=== PATIENT | female | born 1940 | race Caucasian/White ===

== ENCOUNTER 2018-07-01 19:45 | Inpatient (IN) ==
--- NOTE | 2018-07-01 20:16 | ED ---
HPI General Chief Complaint: Fall Stated Complaint: Trauma Transfer Time Seen by Provider: 07/01/18 19:46 Source: patient and EMS Mode of arrival: EMS Limitations: no limitations History of Present Illness HPI Narrative: 78-year-old female that presents to the ED for evaluation of trauma transfer. Patient was seen in a different facility today. Patient was seen at [facility] in [place]. She was evaluated there and sent here for evaluation of traumatic injuries she sustained during a fall. Patient was walking and she apparently had a mechanical fall on a curb and landed on her left side. Suffered laceration to the left face, frontal subdural hematoma and fracture to left wrist. Dr calabrese was contacted by ED and he agreed to transfer here. Patient has a significant history of GERD, anemia, Cirrhosis, atrial fib, diabetes. Currently only complain if headache. Pain is 7/10. No other complains. Denies any numbness, tingling, weakness. No leg pain. No abdominal or chest pain. No SOB. Denies taking any blood thinners. Denies any blurry vision or loss of vision. Patient came here with paperwork from the facility. Related Data Home Medications Medication Instructions Recorded Confirmed Ultram 50 mg PO 07/01/18 allopurinol 150 mg PO DAILY 07/01/18 07/01/18 cephalexin 500 mg PO 07/01/18 furosemide [Lasix] 40 mg PO DAILY 07/01/18 07/01/18 levothyroxine [Synthroid] 25 mcg PO DAILY 07/01/18 07/01/18 propranolol 20 mg PO BID 07/01/18 07/01/18 ranitidine HCl PRN 07/01/18 07/01/18 rifaximin [Xifaxan] 550 mg PO BID 07/01/18 07/01/18 spironolactone [Aldactone] 50 mg PO DAILY 07/01/18 07/01/18 Allergies Allergy/AdvReac Type Severity Reaction Status Date / Time carbamazepine [From Tegretol] Allergy Hallucinati Verified 07/01/18 20:08 ons codeine Allergy Rash Verified 07/01/18 20:08 lisinopril Allergy Hallucinati Verified 07/01/18 20:08 ons meloxicam [From Mobic] Allergy Atrial Verified 07/01/18 20:08 Fibrillation Review of Systems ROS: all other systems reviewed are negative PMFSH History History Provided By: Patient, 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 HEAD: Atraumatic. Normocephalic. Has brusing and noted lacerations with sutures on the left side of face. Bruising and hematoma mostly to the left side of face to the forehead and cheek. EYES: Pupils equal and round. No scleral icterus. No injection or drainage. EOM intact. ENT: No nasal bleeding or discharge. Mucous membranes pink and moist. Tongue is midline. No uvula deviation. NECK: Trachea midline. No JVD. CARDIOVASCULAR: Regular rate and rhythm. RESPIRATORY: No accessory muscle use. Clear to auscultation. Breath sounds equal bilaterally. GASTROINTESTINAL: Abdomen soft, non-tender, nondistended. Hepatic and splenic margins not palpable. MUSCULOSKELETAL: Extremities without clubbing, cyanosis, or edema. No obvious deformities. has a splint to the left wrist. Bruising to the lower extremities. 2+ pulses bilaterally. Sensation intact. No lumbar, thoracic, cervical spine tenderness to palpation. NEUROLOGICAL: Awake and alert. No obvious cranial nerve deficits. Motor grossly within normal limits. Five out of 5 muscle strength in the arms and legs. Normal speech. PSYCHIATRIC: Appropriate mood and affect; insight and judgment normal. Course Initial Documented Vital Signs Temperature 98.6 F 07/01/18 19:57 Pulse Rate 56 L 07/01/18 19:57 Respiratory Rate 18 07/01/18 19:57 Blood Pressure 189/88 H 07/01/18 19:57 Pulse Oximetry 99 07/01/18 19:57 Last Documented Vital Signs Temperature 98.6 F 07/01/18 19:57 Pulse Rate 56 L 07/01/18 19:57 Respiratory Rate 18 07/01/18 19:57 Blood Pressure 189/88 H 07/01/18 19:57 Pulse Oximetry 99 07/01/18 19:57 Medical Decision Making NOAM Attestation NOAM supervised visit: Yes Attestation: I, Dr. Pelletier, have reviewed the advance practice practitioner's documentation and am in agreement, met with the patient face to face, made the diagnosis, and the medical decision making was done by me. *My assessment and Findings: Patient is an 78-year-old female transferred from an outside facility for a subdural hematoma. She sustained a mechanical fall and fell onto her face. She is complaining of a slight headache but otherwise feels well. No blurry vision or pain with extraocular movements. GCS is 15 and she is neurologically intact. Extraocular movements are intact though she does have swelling around the left periorbital region. Of note at the outside facility her INR was 1.1 and platelets were 70. We spoke with Dr. Marcial, neurosurgeon on-call, whom asked for a repeat CT at this time. We also spoke with Dr. Torres, trauma surgeon on-call, whom agreed to admission. MDM Narrative Medical decision making narrative: 78 yo female here for evaluation of trauma transfer. Patient properly examined. I reviewed her medical records from the previous facility and patient had CT of face,head and cervical as well as xray of the left elbow and wrist as well as blood work. Blood work was significant for low platelet at 70, h/h of 10.6/30.9, INR of 1.1, PT 12.2, ptt 33.8, BUN 24 , creat, 1.12, ca 9.3, K 4.5, NA 136, cl 102, gap 15. CT of head and face and neck showed right frontal and right frontal parietal subdural hemorrhage with minimal mass effect and no midline shift. No cercvical spine fracture. Case was discussed with my attending Dr Pelletier who agrees with plan. Dr Calabrese agreed to admission to his service. Orders placed by me. Case discussed with Dr Marcial for Neurosurgery who agrees to consult on patient, wants CT head redone now. this was ordered. I could not find the xray report of the wrist so this was ordered by me as well as type and screen. Medical Screen Exam Complete: Yes Emergency Medical Condition: Yes Differential Diagnosis Differential Diagnosis: trauma vs subdural hematoma vs cirrhosis vs wrist fracture Medical Records Medical records reviewed: Yes I reviewed the patient's medical records. Imaging Data Radiologist's impression: Wrist X-Ray 07/01/18 20:03 CONCLUSION: Fracture at the distal lateral aspect of the radius best seen on the oblique view. Dorsal talus tilting of the lunate with widening of the proximal aspect of the scapholunate interval. Discharge Plan Discharge Disposition Patient Disposition: 30 Still Patient Discharge Condition Condition: Serious Discharge Details Diagnosis: Acute subdural hematoma, Fracture of wrist, Cirrhosis, Fall, Laceration of head , Thrombocytopenia Physicians Team ED Provider: Carmen Pelletier ED Midlevel Provider: Ludwin Santillan Primary Care Provider: UNKNOWN, Attending Provider: Princess Torres Status ED Status: Admitted Patient
--- NOTE | 2018-07-01 20:23 | XR ---
EXAM DATE: 07/01/2018 8:18 PM EDT AGE/SEX: 78 years / Female INDICATIONS: Pain. Fall. CLINICAL DATA: This is the patient's initial encounter. Patient reports that signs and symptoms have been present for 1 day and indicates a pain score of 8/10. MEDICAL/SURGICAL HISTORY: None. None. COMPARISON: No prior exams available for comparison. FINDINGS: The patient appears to be a partial cast. There is fracturing at the lateral aspect of the distal rad ius best seen on the oblique view. The radiocarpal joint appears normally aligned. There is dorsal ti lting of the lunate. There appears to be some widening of the proximal aspect of the scapholunate int erval. CONCLUSION: Fracture at the distal lateral aspect of the radius best seen on the oblique view. Dorsal talus tilting of the lunate with widening of the proximal aspect of the scapholunate interval. Electronically signed by: Monroe Swartz MD 07/01/2018 8:22 PM EDT
--- NOTE | 2018-07-01 21:01 | CT ---
EXAM DATE: 07/01/2018 8:53 PM EDT AGE/SEX: 78 years / Female INDICATIONS: Trauma; Transfer from [facility], evaluate subdural hemorrhage. CLINICAL DATA: This is the patient's initial encounter. Patient reports that signs and symptoms have been present for 1 day and indicates a pain score of 5/10. MEDICAL/SURGICAL HISTORY: . AFIB . Left knee replacement. RADIATION DOSE: 52.00 CTDI (mGy) COMPARISON: No prior exams available for comparison. TECHNIQUE: CT of the head without contrast. Using automated exposure control and adjustment of the mA and/or kV according to patient size, radiation dose was kept as low as reasonably achievable to ob tain optimal diagnostic quality images. DICOM format image data is available electronically for revi ew and comparison. FINDINGS: Cerebrum: There is a mild extra-axial hemorrhage seen at the right frontal region measuring up to 5 mm in thickness likely related to mild subdural hemorrhage. Significant midline shift is not seen. Th e ventricles are normal for age. No evidence of midline shift, mass lesion, or acute infarction. Posterior Fossa: The cerebellum and brainstem are intact. The 4th ventricle is midline. The cerebe llopontine angle is unremarkable. Extracranial: The visualized portion of the orbits is intact. Skull: There is left periorbital soft tissue swelling. CONCLUSION: 1. Mild 5 mm thick right subdural hematoma without midline shift. 2. Left periorbital soft tissue swelling. . Electronically signed by: Monroe Swartz MD 07/01/2018 9:00 PM EDT
--- NOTE | 2018-07-01 22:42 | P.CONNS ---
History of Present Illness Primary Care Provider: UNKNOWN Chief Complaint: Right parietal thin SDH History of Present Illness: 78yoF who fell. She is not on blood thinners but is cirrhotic with plt 70. Transferred from OSH where she was intact (no LOC). Left wrist fracture. There , head CT demonstrated right parietal SDH thin, which is redemonstrated on scan here 4 hours later. FORMERLY [facility], 1928–1983 - History History Provided By: Patient, Medical Record, Welding Supervisor / EMT - Medical History Medical History: Medical History (Last Reviewed 07/01/18 @ 20:20 by BALAJI Gamez) Atrial fibrillation FH: total knee replacement Platelet count less 100,000 per cubic millimeter - Tobacco History Second Hand Smoke Exposure: No Smoking Status: Never smoker - Alcohol History How Often Do You Have a Drink Containing Alcohol: Never - Travel History Recent Travel in the [place] Within the Last 8 Weeks: No Recent Travel Out of the Country Within the Last 8 Weeks: No - Immunization History Tetanus Immunization: <5 Years Tetanus Immunization Year if Known: 2018 Medications and Allergies Allergies Allergy/AdvReac Type Severity Reaction Status Date / Time carbamazepine [From Tegretol] Allergy Hallucinati Verified 07/01/18 20:08 ons codeine Allergy Rash Verified 07/01/18 20:08 lisinopril Allergy Hallucinati Verified 07/01/18 20:08 ons meloxicam [From Mobic] Allergy Atrial Verified 07/01/18 20:08 Fibrillation Home Medications Medication Instructions Recorded Confirmed Type Ultram 50 mg PO 07/01/18 History allopurinol 150 mg PO DAILY 07/01/18 07/01/18 History cephalexin 500 mg PO 07/01/18 History furosemide [Lasix] 40 mg PO DAILY 07/01/18 07/01/18 History levothyroxine [Synthroid] 25 mcg PO DAILY 07/01/18 07/01/18 History propranolol 20 mg PO BID 07/01/18 07/01/18 History ranitidine HCl PRN 07/01/18 07/01/18 History rifaximin [Xifaxan] 550 mg PO BID 07/01/18 07/01/18 History spironolactone [Aldactone] 50 mg PO DAILY 07/01/18 07/01/18 History Exam Vital signs: Vital Signs 07/01/18 19:57 07/01/18 21:25 Temperature 98.6 F Pulse Rate 56 L 80 Respiratory Rate 18 18 Blood Pressure 189/88 H 165/73 H Pulse Oximetry 99 Intake & Output 07/01/18 07/01/18 07/02/18 06:59 18:59 06:59 Weight 73.482 kg Narrative: A&O x 3 CN II-XII intact Motor 5/5 UE/LE Assessment and Plan - Plan hCT showing thin right parietal SDH, stable on repeat imaging. Plan: Admit overnight obs for neuro checks per trauma. Spine cleared.
[2018-07-01] MEDS ORDERED: Bisacodyl 10 MG Supp RECTAL PRN (23:17)
[2018-07-01] MEDS ORDERED: Post-op Orders (for Pharmacy) OTHER ONE (23:17)
[2018-07-01] MEDS ORDERED: Naloxone Inj 0.4 MG/ML Vial IV.PUSH PRN (23:17)
[2018-07-01] MEDS ORDERED: Morphine Inj 4 MG/ML Vial IV.PUSH PRN (23:17)
[2018-07-01] MEDS ORDERED: Sod Chloride 0.9% Inj 1,000 ML IV.CONT SCH (23:30)
--- NOTE | 2018-07-02 00:39 | XR ---
EXAM DATE: 07/02/2018 12:01 AM EDT AGE/SEX: 78 years / Female INDICATIONS: Right wrist pain post fall today CLINICAL DATA: This is the patient's initial encounter. Patient reports that signs and symptoms have been present for 1 day and indicates a pain score of 8/10. MEDICAL/SURGICAL HISTORY: None. None. COMPARISON: No prior exams available for comparison. FINDINGS: A tiny dorsal fragment is seen on the lateral view which is presumably a triquetral fracture fragment . The wrist appears otherwise intact. Overall bony alignment otherwise normal. Mild degenerative arth ritic change in the thumb carpal joint region. CONCLUSION: Likely small triquetral chip fracture. Electronically signed by: Monroe Cowart MD 07/02/2018 12:37 AM EDT
[2018-07-02] MEDS ORDERED: Dextrose 50% in Water 50 ML Vial IV.PUSH PRN (05:33)
[2018-07-02 06:30] LABS: Baso % (Auto) 0.6 % (0.0-2.0); Eos # (Auto) 0.1 th/mm3 (0.0-0.4); Eos % (Auto) 1.1 % (0.0-4.0); Hematocrit 29.8 % (35.0-46.0); Hemoglobin 10.2 gm/dL (11.6-15.3); Lymph # (Auto) 1.8 th/mm3 (1.0-4.8); Lymph % (Auto) 22.4 % (9.0-44.0); Mean Corpuscular HGB Conc 34.4 % (32.0-36.0); Mean Corpuscular Hemoglobin 33.5 pg (27.0-34.0); Mean Corpuscular Volume 97.3 fL (80.0-100.0); Mean Platelet Volume 9.3 fL (7.0-11.0); Mono # (Auto) 0.7 th/mm3 (0.0-0.9); Mono % (Auto) 9.1 % (0.0-8.0); Neut # (Auto) 5.3 th/mm3 (1.8-7.7); Neut % (Auto) 66.8 % (16.0-70.0); Platelet Count 67 th/mm3 (150-450); Red Blood Count 3.06 mil/mm3 (4.00-5.30); Red Cell Distribution Width 13.7 % (11.6-17.2)
[2018-07-02 06:53] LABS: Albumin 3.4 g/dL (3.4-5.0); Calcium 8.6 mg/dL (8.5-10.1); Carbon Dioxide 24.4 meq/L (21.0-32.0)
[2018-07-02 06:56] LABS: Total Protein 6.5 g/dL (6.4-8.2)
[2018-07-02] MEDS ORDERED: Famotidine 20 MG Tablet PO SCH (09:00)
[2018-07-02] MEDS: rifAXIMin 550 MG Tablet PO SCH ×2 (09:26→21:38)
[2018-07-02] MEDS: Senna/Docusate Sodium 8.6/50 MG Tablet PO SCH ×2 (09:27→21:37)
[2018-07-02] MEDS: Insulin NovoLIN Regular Correctional Sugar Inj SQ SCH ×4 (09:35→21:38)
[2018-07-02 09:59] LABS: Platelet Morphology Normal (Normal)
--- NOTE | 2018-07-02 10:06 | P.CONOP ---
[facility] Orthopedics Consult Note - [facility] Consult date: 07/02/18 Consult reason: fracture Chief complaint: Trauma Transfer, subdural hematoma, wrist fxs Narrative: A very pleasant 78-year-old female was a trauma transfer. Patient states that she tripped and fell over the curb in a parking lot and landed on the left side of her face and bilateral upper extremities. After subsequent evaluation and radiographs it appears that the patient sustained a left wrist fracture and right hand/carpal bone fracture. Patient was subsequently placed into a left short arm splint. Patient admits previous orthopedic surgeries include a left total knee arthroplasty several years ago. Patient admits she does have an orthopedic surgeon back home and is okay with receiving follow-up care with him. Patient previously ambulated unassisted and lives at home with her son and [id number]. No other musculoskeletal injuries identified. Review of Systems All other systems reviewed negative except as stated in [facility] - History History Provided By: Patient - Medical History Medical History: Medical History (Last Reviewed 07/01/18 @ 20:20 by BALAJI Gamez) Atrial fibrillation FH: total knee replacement Platelet count less 100,000 per cubic millimeter - Tobacco History Second Hand Smoke Exposure: No Smoking Status: Never smoker - Alcohol History How Often Do You Have a Drink Containing Alcohol: Never - Substance Use History Substance History: No History of Abuse - Travel History Recent Travel in the [place] Within the Last 8 Weeks: No Recent Travel Out of the Country Within the Last 8 Weeks: No - Immunization History Tetanus Immunization: <5 Years Tetanus Immunization Year if Known: 2018 Medications and Allergies Active Medications: Active Medications Al Hydroxide/Mg Hydroxide (Milk Of Danica Liq) 30 ml PO Q12H PRN PRN Reason: Mild Constipation Bisacodyl (Dulcolax Supp) 10 mg RECTAL DAILY PRN PRN Reason: SEVERE CONSITIPATION Dextrose (D50w Vial) 50 ml IV.PUSH UNSCH PRN PRN Reason: PER HYPOGLYCEMIA PROTOCOL Famotidine (Pepcid) 20 mg PO BID [facility] Last Admin: 07/02/18 09:26 Dose: 20 mg Glucagon (Glucagon Inj) 1 mg OTHER PRN PRN PRN Reason: for Hypoglycemia Protocol Sodium Chloride (Ns Inj) 1,000 mls @ 60 mls/hr IV.CONT .[id number] [facility] Last Admin: 07/02/18 01:11 Dose: 60 mls/hr Insulin Human Regular (Novolin R Correctional Sugar Inj) 0 units SQ ACHS [facility]; Protocol Last Admin: 07/02/18 09:35 Dose: Not Given Lactulose (Lactulose Liq) 30 ml PO DAILY PRN PRN Reason: SEVERE CONSITIPATION Levothyroxine Sodium (Synthroid) 25 mcg PO DAILY@0700 [facility] Last Admin: 07/02/18 09:30 Dose: 25 mcg Morphine Sulfate (Morphine Inj) 2 mg IV.PUSH Q3H PRN PRN Reason: PAIN 6-10;IF UNABLE TO TAKE PO Last Admin: 07/02/18 01:10 Dose: 2 mg Naloxone HCl (Narcan Inj) 0.4 mg IV.PUSH UNSCH PRN PRN Reason: SEE LABEL COMMENTS Ondansetron HCl (Zofran Inj) 4 mg IV.PUSH Q6H PRN PRN Reason: NAUSEA OR VOMITING Oxycodone/Acetaminophen (Percocet 5/325 Mg) 1 tab PO Q4H PRN PRN Reason: PAIN SCALE 3 TO 5 Propranolol HCl (Inderal) 20 mg PO BID [facility] Last Admin: 07/02/18 09:26 Dose: 20 mg Rifaximin (Xifaxan) 550 mg PO BID [facility] Last Admin: 07/02/18 09:26 Dose: 550 mg Senna/Docusate Sodium (Gypsy-Colace) 1 tab PO BID [facility] Last Admin: 07/02/18 09:27 Dose: 1 tab Sennosides (Senokot) 17.2 mg PO Q12H PRN PRN Reason: Moderate Constipation Allergies Allergy/AdvReac Type Severity Reaction Status Date / Time carbamazepine [From Tegretol] Allergy Hallucinati Verified 07/01/18 20:08 ons codeine Allergy Rash Verified 07/01/18 20:08 lisinopril Allergy Hallucinati Verified 07/01/18 20:08 ons meloxicam [From Mobic] Allergy Atrial Verified 07/01/18 20:08 Fibrillation Home Medications Medication Instructions Recorded Confirmed Type Ultram 50 mg PO 07/01/18 History allopurinol 150 mg PO DAILY 07/01/18 07/01/18 History cephalexin 500 mg PO 07/01/18 History furosemide [Lasix] 40 mg PO DAILY 07/01/18 07/01/18 History levothyroxine [Synthroid] 25 mcg PO DAILY 07/01/18 07/01/18 History propranolol 20 mg PO BID 07/01/18 07/01/18 History ranitidine HCl PRN 07/01/18 07/01/18 History rifaximin [Xifaxan] 550 mg PO BID 07/01/18 07/01/18 History spironolactone [Aldactone] 50 mg PO DAILY 07/01/18 07/01/18 History Exam Vital signs: Vital Signs 07/01/18 19:57 07/01/18 21:25 07/02/18 00:00 Temperature 98.6 F 98.5 F Pulse Rate 56 L 80 90 Respiratory Rate 18 Blood Pressure 189/88 H 165/73 H 131/69 Pulse Oximetry 99 07/02/18 04:00 Temperature 98.7 F Pulse Rate 80 Respiratory Rate 15 Blood Pressure 140/85 Pulse Oximetry Intake & Output 07/01/18 07/02/18 07/02/18 18:59 06:59 18:59 Intake Total 0 / 0 Output Total 850 / 850 Balance -850 / -850 Weight 73.4 kg Intake: Oral 0 / 0 Output: Urine 850 / 850 Other: Weight On Admission 73.4 kg Narrative: LUE: Short arm splint was removed for examination. Patient is able to move distal digits, full motion of elbow and shoulder, mild swelling present, good cap refill, neurovascularly intact RUE: Palpable tenderness over distal wrist and carpal bones, mild swelling present, slightly limited motion, full motion of elbow and shoulder, full motion of distal digits, good cap refill, neurovascularly intact Scattered skin abrasions noted throughout lower extremities, well-healed anterior scar on left knee No other muscular skeletal injuries identified Results - Labs Result Diagrams: 07/02/18 06:11 07/02/18 06:11 Labs: Laboratory Results - last 24 hr 07/01/18 07/02/18 07/02/18 20:06 00:30 06:11 WBC 8.0 RBC 3.06 L Hgb 10.2 L Hct 29.8 L MCV 97.3 MCH 33.5 MCHC 34.4 RDW 13.7 Plt Count 67 L MPV 9.3 Prelim Diff (Auto) Slide review pending Neut % (Auto) 66.8 Lymph % (Auto) 22.4 [place] % (Auto) 9.1 H Eos % (Auto) 1.1 Baso % (Auto) 0.6 Neut # (Auto) 5.3 Lymph # (Auto) 1.8 [place] # (Auto) 0.7 Eos # (Auto) 0.1 Baso # (Auto) 0.0 Differential Comment . Sodium Potassium Chloride Carbon Dioxide Anion Gap BUN Creatinine Estimated GFR POC Glucose Random Glucose Calcium Total Bilirubin Direct Bilirubin Indirect Bilirubin AST ALT Alkaline Phosphatase Total Protein Albumin Nasal Screen MRSA (PCR) Not detected Blood Type O Positive Antibody Screen Negative 07/02/18 07/02/18 06:11 09:35 WBC RBC Hgb Hct MCV MCH MCHC RDW Plt Count MPV Prelim Diff (Auto) Neut % (Auto) Lymph % (Auto) [place] % (Auto) Eos % (Auto) Baso % (Auto) Neut # (Auto) Lymph # (Auto) [place] # (Auto) Eos # (Auto) Baso # (Auto) Differential Comment Sodium 140 Potassium 4.0 Chloride 108 H Carbon Dioxide 24.4 Anion Gap 8 BUN 22 H Creatinine 1.18 H Estimated GFR 44 L POC Glucose 114 H Random Glucose 106 Calcium 8.6 Total Bilirubin 0.8 Direct Bilirubin 0.2 Indirect Bilirubin 0.6 AST 13 L ALT 17 Alkaline Phosphatase 76 Total Protein 6.5 Albumin 3.4 Nasal Screen MRSA (PCR) Blood Type Antibody Screen - Diagnostic results Imaging: Impressions Wrist X-Ray 07/01/18 00:00 CONCLUSION: Likely small triquetral chip fracture. Wrist X-Ray 07/01/18 20:03 CONCLUSION: Fracture at the distal lateral aspect of the radius best seen on the oblique view. Dorsal talus tilting of the lunate with widening of the proximal aspect of the scapholunate interval. Head CT 07/01/18 20:10 CONCLUSION: 1. Mild 5 mm thick right subdural hematoma without midline shift. 2. Left periorbital soft tissue swelling. . Assessment and Plan - Assessment and Plan The findings were discussed with the patient. Dr Bandar Blank has reviewed images and details of this case. Recommendations are given for non-operative management at this time. Patient is to remain in left upper extremity short arm splint. Velcro wrist brace for right wrist will be ordered for patient's comfort. Progress physical therapy for mobilization and pain control. Nonweightbearing bilateral upper extremities. Continue pain control. Recommended orthopedic follow up with her primary orthopedic surgeon in [place] [employer] in 7-10 days. Further displacement of the fracture site may require fixation. The possibility of future surgical treatment was discussed with the patient in detail, the patient acknowledges full understanding. Orthopedic clear for discharge at this time once medically stable and clear. Appreciate orthopedic involvement in patient's care.
--- NOTE | 2018-07-02 12:53 | P.PNCC ---
Subjective Brief History: HPI Narrative: 78-year-old female that presents to the ED for evaluation of trauma transfer. Patient was seen in a different facility today. Patient was seen at [facility] in [place]. She was evaluated there and sent here for evaluation of traumatic injuries she sustained during a fall. Patient was walking and she apparently had a mechanical fall on a curb and landed on her left side. Patient remembers the accident She is readily accepted for transfer to our institution Initial workup reveals Left facial contusions and laceration of the forehead which has been repaired Small left subdural hematoma with a frontal contusion Left radius/wrist fracture Right triquetrum fracture Liver cirrhosis based on nonsteroidal anti-inflammatory consumption Chronic thrombocytopenia Patient is admitted to ICU where she is awake alert and oriented and further care per clinical indices 24 Hour Review/Hospital Course: 07/02/2018 Patient is awake alert and oriented Neurologically fully intact Facial swelling decreased incision is clean and dry We will repeat CT scan of the head tomorrow Hemodynamically fully intact Bilateral breath sounds with good oxygen exchange and pulmonary mechanics Abdomen soft active bowel sounds Plan Patient will be started on diet will transfer to floor Physical therapy will evaluate the patient CT scan tomorrow and based on the resolution of the same patient will probably be able to be discharged Wednesday Objective Vital Signs / I&O: Vital Signs 07/01/18 19:57 07/01/18 21:25 07/02/18 00:00 Temperature 98.6 F 98.5 F Pulse Rate 56 L 80 90 Respiratory Rate 18 18 18 Blood Pressure 189/88 H 165/73 H 131/69 Pulse Oximetry 99 07/02/18 04:00 07/02/18 08:00 07/02/18 10:00 Temperature 98.7 F 98 F Pulse Rate 80 85 74 Respiratory Rate 15 16 Blood Pressure 140/85 141/60 H Pulse Oximetry 98 07/02/18 12:00 Temperature 98.1 F Pulse Rate 61 Respiratory Rate 16 Blood Pressure 135/65 Pulse Oximetry 98 Intake & Output 07/01/18 07/02/18 07/02/18 18:59 06:59 18:59 Intake Total 0 / 0 Output Total 850 / 850 Balance -850 / -850 Weight 73.4 kg Intake: Oral 0 / 0 Output: Urine 850 / 850 Other: Weight On Admission 73.4 kg Result Diagrams: 07/02/18 06:11 07/02/18 06:11 Imaging: Impressions Wrist X-Ray 07/01/18 00:00 CONCLUSION: Likely small triquetral chip fracture. Wrist X-Ray 07/01/18 20:03 CONCLUSION: Fracture at the distal lateral aspect of the radius best seen on the oblique view. Dorsal talus tilting of the lunate with widening of the proximal aspect of the scapholunate interval. Head CT 07/01/18 20:10 CONCLUSION: 1. Mild 5 mm thick right subdural hematoma without midline shift. 2. Left periorbital soft tissue swelling. . Disinhibition Score: 14.00 Aggression Score: 14.00 Lability Score: 14.00 Agitated Behavior Total Score: 14 Assessment and Plan Attestation: Critical care time 34 minutes
--- NOTE | 2018-07-02 13:30 | MH ---
cc: Princess Torres MD DATE OF ADMISSION: 07/01/2018 ADMITTING PHYSICIAN: Princess Torres MD ADMITTING DIAGNOSES: Traumatic brain injury, fall. HISTORY OF PRESENT ILLNESS: This 78-year-old lady apparently fell on when she tripped on the curb. She was seen at the [facility] and the request was made to transfer the patient. Apparently, the patient landed on her left side, suffered lacerations to the face and frontal very thin subdural hematoma, as well as a fracture of the left wrist that was diagnosed over there. PAST MEDICAL HISTORY: Cirrhosis, atrial fibrillation, diabetes mellitus, chronic thrombocytopenia. PAST SURGICAL HISTORY: Total knee replacement, cholecystectomy, and appendectomy. MEDICATIONS: The patient is on a number of medications that can be found in the record. PHYSICAL EXAMINATION: GENERAL: Reveals a pleasant, 78-year-old lady, awake, alert and oriented. HEENT: Normocephalic. Trauma to the head, consisting of swelling of the left side of the face, periorbital and left frontal and cheek swelling with a vertical laceration, left side of the forehead that has been repaired surgically. Pupils equal, reactive. Extraocular muscles intact. NECK: Bilateral carotid pulses. I do not appreciate any bruits. CHEST: Bilateral breath sounds, decreased over the lung cm. HEART: Regular rate and rhythm. ABDOMEN: Soft. Active bowel sounds. No rebound, no guarding, no masses. I palpated the liver by the edge, but other than that, there are no other abnormalities. EXTREMITIES: The patient has bilateral femoral, popliteal, dorsalis pedis and posterior tibial pulses, bilateral brachial, ulnar and radial pulses. NEUROLOGIC: The patient is awake and alert, oriented. No lateralization, no drift. Motor: Equal strength. Bilateral sensory preserved. MUSCULOSKELETAL: Reveals the patient to have swollen left wrist, which is consistent of a radius fracture and on the right side, the patient complained of the pain. Right hand x-ray reveals os triquetrum fracture. Orthopedics has been consulted. IMPRESSION: Patient with fall and a preexisting thrombocytopenia based on chronic liver fibrosis. The patient is transferred to our institution for further care and placed in the ICU. CRITICAL CARE TIME: 32 minutes. MD Gerri Bah , 12:49 PM , 12:57 PM
[2018-07-02] MEDS ORDERED: Sodium Chloride 0.9% 2 ML Flush PRN IV.FLUSH (16:20)
[2018-07-02] MEDS: Famotidine 20 MG Tablet PO SCH (21:37)
[2018-07-02] MEDS: Sodium Chloride 0.9% 2 ML Flush BID IV.FLUSH SCH (21:38)
--- NOTE | 2018-07-03 06:54 | P.DCO ---
- Physical Therapy Order: Evaluate and treat, Improve ambulation, Strength and gait training - Occupational Therapy Order: Evaluate and treat, Improve ADL - Home Health Nursing Order: Nursing assessment with vital signs - Case Management Consult Yes - Certification I have seen patient Jerome Benjamin on 07/03/18. My clinical findings support the need for the requested home health care services because: Limited mobility due to disease progression, High risk of falls I certify that my clinical findings support that this patient is homebound because: Unsteady gait/balance
[2018-07-03] MEDS: Insulin NovoLIN Regular Correctional Sugar Inj SQ SCH ×2 (07:58→11:49)
[2018-07-03] MEDS: Famotidine 20 MG Tablet PO SCH (08:05)
[2018-07-03] MEDS: rifAXIMin 550 MG Tablet PO SCH (08:05)
[2018-07-03] MEDS: Senna/Docusate Sodium 8.6/50 MG Tablet PO SCH (08:05)
[2018-07-03] MEDS: Sodium Chloride 0.9% 2 ML Flush BID IV.FLUSH SCH (08:06)
[2018-07-03] MEDS ORDERED: Spironolactone 50 MG Tablet PO SCH (09:00)
[2018-07-03 09:32] LABS: Baso % (Auto) 0.5 % (0.0-2.0); Eos # (Auto) 0.2 th/mm3 (0.0-0.4); Hematocrit 29.6 % (35.0-46.0); Hemoglobin 10.2 gm/dL (11.6-15.3); Lymph # (Auto) 2.1 th/mm3 (1.0-4.8); Lymph % (Auto) 21.3 % (9.0-44.0); Mean Corpuscular HGB Conc 34.4 % (32.0-36.0); Mean Corpuscular Hemoglobin 33.7 pg (27.0-34.0); Mean Corpuscular Volume 98.1 fL (80.0-100.0); Mean Platelet Volume 9.5 fL (7.0-11.0); Mono % (Auto) 10.5 % (0.0-8.0); Neut # (Auto) 6.5 th/mm3 (1.8-7.7); Neut % (Auto) 65.7 % (16.0-70.0); Platelet Count 75 th/mm3 (150-450); Red Blood Count 3.02 mil/mm3 (4.00-5.30); Red Cell Distribution Width 13.5 % (11.6-17.2); White Blood Count 9.9 th/mm3 (4.0-11.0)
[2018-07-03 10:05] LABS: Calcium 8.8 mg/dL (8.5-10.1); Carbon Dioxide 22.2 meq/L (21.0-32.0)
[2018-07-03 11:40] LABS: Ovalocytes 1+
--- NOTE | 2018-07-03 15:35 | P.DS ---
Date of admission: 07/01/18 20:02 Primary care physician: UNKNOWN Brief History from admission: S/P Fall DS: Medications - Discharge Medications Prescriptions: oxycodone-acetaminophen 1 tab PO Q4H PRN #14 tab PRN Reason: Acute Pain DS: Summary Hospital Course: VASQUEZ: Tripped and fell on a curb landing on her left side. ?LOC. Trauma transfer. INJURIES: LEFT facial lac (sutures) RIGHT frontoparietal SDH (5mm) LEFT radius fx (non-op) RIGHT hand fx (non-op) PMHx: GERD, anemia, Cirrhosis, atrial fib, DM, hypothyroidism, HTN, gout LEFT facial lac Supportive care Cleanse wound daily with soap and water. Leave open to air. Suture removal in 5 days RIGHT frontoparietal SDH Neurosurgery consulted, F/U outpatient Supportive care Repeat Head CT stable No Keppra needed Stable neuro checks Avoid second head injury Postconcussive education LEFT radius fx, RIGHT hand fx Orthopedics consulted, F/U outpatient Non-op Maintain splints NWB BUE Pain control F/U with PCP in 1 week Plan of care discussed with patient and RN at bedside. Collaborating Trauma MD agrees with plan. Case management consulted to assist with discharge planning. Patient is clear from Trauma surgery standpoint to safely discharge home. - Time Spent with Patient Total time spent providing and/or coordinating discharge services: Greater than 30 minutes - Quality: VTE Deep Vein Thrombosis/Pulmonary Embolism Present on Admission: Yes Exam Vital signs: Vital Signs 07/02/18 20:00 07/03/18 00:00 07/03/18 04:00 Temperature 98.5 F 98.4 F 98 F Pulse Rate 66 116 H 66 Respiratory Rate 18 18 18 Blood Pressure 125/55 L 133/60 132/60 Pulse Oximetry 99 93 L 99 07/03/18 08:00 07/03/18 12:00 Temperature 97.8 F 97.1 F L Pulse Rate 72 57 L Respiratory Rate 16 16 Blood Pressure 122/69 123/58 L Pulse Oximetry 96 100 Intake & Output 07/02/18 07/03/18 07/03/18 19:59 06:59 18:59 Intake Total 140 / 140 Balance 140 / 140 Intake: IV NS Inj 1,000 ML @ 60 mls/hr IV. CONT .[id number] LILO Rx#:[id number] Oral 140 / 140 Other: # Voids # Bowel Movements Narrative: GENERAL: 78 year old well-nourished female OOB in chair. SKIN: Warm and dry. LEFT facial edema and ecchymosis with sutures well approximated. HEAD:Normocephalic. ENT: No nasal bleeding or discharge. Mucous membranes pink and moist. NECK: Trachea midline. No JVD. CARDIOVASCULAR: Regular rate and rhythm. RESPIRATORY: No accessory muscle use. Clear to auscultation bilaterally. GASTROINTESTINAL: Abdomen soft, non-tender, nondistended. + BS MUSCULOSKELETAL: Extremities without cyanosis, or edema. LUE soft splint in place. MAEW, + perfused NEUROLOGICAL: Awake and alert. Normal speech. Results Procedures completed during hospitalization: . Labs on day of discharge: Labs from last 24 hours 07/03/18 07/03/18 07/03/18 11:35 08:46 08:46 WBC 9.9 RBC 3.02 L Hgb 10.2 L Hct 29.6 L MCV 98.1 MCH 33.7 MCHC 34.4 RDW 13.5 Plt Count 75 L MPV 9.5 Prelim Diff (Auto) Slide review pending Neut % (Auto) 65.7 Lymph % (Auto) 21.3 Mccracken % (Auto) 10.5 H Eos % (Auto) 2.0 Baso % (Auto) 0.5 Neut # (Auto) 6.5 Lymph # (Auto) 2.1 Mccracken # (Auto) 1.0 H Eos # (Auto) 0.2 Baso # (Auto) 0.0 WBC Differential . Diff Scan Auto diff confirmed Differential Comment . Platelet Estimate Low L Platelet Morphology Enlarged H Ovalocytes 1+ H Sodium 137 Potassium 4.0 Chloride 106 Carbon Dioxide 22.2 Anion Gap 9 BUN 21 H Creatinine 1.16 H Estimated GFR 45 L POC Glucose 107 Random Glucose 119 H Calcium 8.8 07/03/18 07/02/18 07/02/18 07:39 20:29 17:08 WBC RBC Hgb Hct MCV MCH MCHC RDW Plt Count MPV Prelim Diff (Auto) Neut % (Auto) Lymph % (Auto) Mccracken % (Auto) Eos % (Auto) Baso % (Auto) Neut # (Auto) Lymph # (Auto) Mccracken # (Auto) Eos # (Auto) Baso # (Auto) WBC Differential Diff Scan Differential Comment Platelet Estimate Platelet Morphology Ovalocytes Sodium Potassium Chloride Carbon Dioxide Anion Gap BUN Creatinine Estimated GFR POC Glucose 126 H 134 H 129 H Random Glucose Calcium - Impressions ITS Impressions Wrist X-Ray 07/01/18 20:03 CONCLUSION: Fracture at the distal lateral aspect of the radius best seen on the oblique view. Dorsal talus tilting of the lunate with widening of the proximal aspect of the scapholunate interval. Head CT 07/01/18 20:10 CONCLUSION: 1. Mild 5 mm thick right subdural hematoma without midline shift. 2. Left periorbital soft tissue swelling. . Discharge Plan - Discharge Disposition Patient Disposition: W/Home Health Service - Discharge Condition Condition: Stable - Discharge Order Discharge Orders: Discharge Order (Routine); Ordered 07/03/18 Ordered By: Pipo Beckham - Physicians Team Primary Care Provider: UNKNOWN, Attending Provider: Princess Torres Other Providers: Tono Alcantara MD ; Narinder Abraham MD ; Systems, [employer] ; Ramses Iniguez MD ; Marlin Mcgrath ARNP ; Link Todd MD ; Sherry Hylton MD ; Pipo Beckham ARNP ; Princess Torres MD ; Bandar Blank MD
[2018-07-04] MEDS ORDERED: Furosemide 40 MG Tablet PO SCH (09:00)
== END 2018-07-03 15:34 | disposition home health service (06) ==
LOC: NEPE 19:45 → NEDA 20:02 → N03 07-02 00:20 → N05 07-02 17:27
PROVIDERS: ADMIT Surgery; ATTEND Surgery

== ENCOUNTER 2018-07-24 14:23 | Inpatient (IN) ==
--- NOTE | 2018-07-24 14:33 | ED ---
HPI General Chief Complaint: Headache Stated Complaint: Medical / [facility] Time Seen by Provider: 07/24/18 14:26 Source: patient, EMS, RN notes reviewed and old records reviewed Mode of arrival: EMS Limitations: no limitations History of Present Illness HPI Narrative: 78-year-old female presents as a transfer accepted by our neurosurgeon dr redmond for a subdural. Patient states she had a fall on July 01 and has had a persistent headache ever since that got worse last night. She went to [facility] where she had a CT that showed a increase in subdural with shift and was sent here for further care. She denies taking any blood thinner medications and states she has history of low platelets. She denies any other concurrent complaints. Related Data Home Medications Medication Instructions Recorded Confirmed allopurinol 150 mg PO DAILY 07/01/18 07/01/18 furosemide [Lasix] 40 mg PO DAILY 07/01/18 07/01/18 levothyroxine [Synthroid] 25 mcg PO DAILY 07/01/18 07/01/18 propranolol 20 mg PO BID 07/01/18 07/01/18 ranitidine HCl PRN 07/01/18 07/01/18 rifaximin [Xifaxan] 550 mg PO BID 07/01/18 07/01/18 spironolactone [Aldactone] 50 mg PO DAILY 07/01/18 07/01/18 Previous Rx's Medication Instructions Recorded oxycodone-acetaminophen 1 tab PO Q4H PRN #14 tab 07/03/18 Allergies Allergy/AdvReac Type Severity Reaction Status Date / Time carbamazepine [From Tegretol] Allergy Hallucinati Verified 07/01/18 20:08 ons codeine Allergy Rash Verified 07/01/18 20:08 lisinopril Allergy Hallucinati Verified 07/01/18 20:08 ons meloxicam [From Mobic] Allergy Atrial Verified 07/01/18 20:08 Fibrillation Review of Systems ROS: all other systems reviewed are negative [facility] Medical History Medical History Atrial fibrillation (Acute) FH: total knee replacement (Acute) Platelet count less 100,000 per cubic millimeter (Acute) Social History Social History Substance History: No History of Abuse Second Hand Smoke Exposure: No Smoking Status: Never smoker How Often Do You Have a Drink Containing Alcohol: Never Recent Travel in [facility] within the Last 8 Weeks: No Recent Out of Country Travel within the Last 8 Weeks: No Immunization History Tetanus Immunization Year if Known: 2018 Exam Narrative Exam Narrative: GENERAL: 78 y/o female in no apparent distress SKIN: Focused skin assessment warm/dry. HEAD: Atraumatic. Normocephalic. EYES: Pupils equal and round. No scleral icterus. No injection or drainage. ENT: No nasal bleeding or discharge. Mucous membranes pink and moist. NECK: Trachea midline. No JVD. CARDIOVASCULAR: Regular rate and rhythm. No murmur appreciated. RESPIRATORY: No accessory muscle use. Clear to auscultation. Breath sounds equal bilaterally. GASTROINTESTINAL: Abdomen soft, non-tender, nondistended. MUSCULOSKELETAL: No obvious deformities. No clubbing. No cyanosis. NEUROLOGICAL: Awake, Motor grossly within normal limits. Normal speech. Course Consultations Consultation #1: dr redmond states to admit to icu team, npo after midnight for OR tommorrow and repeat ct head Consultation #2: dr castillo agrees to admti Initial Documented Vital Signs Temperature 98.8 F 07/24/18 14:24 Pulse Rate 87 07/24/18 14:24 Respiratory Rate 16 07/24/18 14:24 Last Documented Vital Signs Temperature 98.9 F 07/24/18 14:28 Pulse Rate 84 07/24/18 14:28 Respiratory Rate 16 07/24/18 14:24 Blood Pressure 178/76 H 07/24/18 14:28 Pulse Oximetry 98 07/24/18 14:28 Medical Decision Making [facility] Narrative Medical decision making narrative: Patient arrived from [place] with subdural with shift. Will discuss with neurosurgery and repeat blood work Medical Screen Exam Complete: Yes Emergency Medical Condition: Yes Differential Diagnosis Differential Diagnosis: Subdural, fracture, subarachnoid Lab Data Result diagrams: 07/24/18 14:32 07/24/18 14:32 Discharge Plan Discharge Disposition Patient Disposition: 30 Still Patient Discharge Details Diagnosis: Acute subdural hematoma, Thrombocytopenia Physicians Team ED Provider: Rosanne Zavaleta Primary Care Provider: Tima Mccracken Rxs /Orders / Referrals /Forms Prescriptions: No Action furosemide [Lasix] 40 mg Tablet 40 mg PO DAILY RF: 0 spironolactone [Aldactone] 50 mg Tablet 50 mg PO DAILY RF: 0 levothyroxine [Synthroid] 25 mcg Tablet 25 mcg PO DAILY RF: 0 allopurinol 300 mg Tablet 150 mg PO DAILY RF: 0 ranitidine HCl 150 mg Capsule PRN (Reason: Acid Reflux) RF: 0 propranolol 20 mg Tablet 20 mg PO BID RF: 0 rifaximin [Xifaxan] 550 mg Tablet 550 mg PO BID RF: 0 oxycodone-acetaminophen 5-325 mg Tablet 1 tab PO Q4H PRN (Reason: Acute Pain) Qty: 14 RF: 0 Status ED Status: Admitted Patient
[2018-07-24 15:07] LABS: Baso % (Auto) 0.4 % (0.0-2.0); Eos # (Auto) 0.1 th/mm3 (0.0-0.4); Eos % (Auto) 0.6 % (0.0-4.0); Hematocrit 30.4 % (35.0-46.0); Hemoglobin 10.5 gm/dL (11.6-15.3); Lymph # (Auto) 1.9 th/mm3 (1.0-4.8); Lymph % (Auto) 20.8 % (9.0-44.0); Mean Corpuscular HGB Conc 34.6 % (32.0-36.0); Mean Corpuscular Hemoglobin 33.9 pg (27.0-34.0); Mean Platelet Volume 9.5 fL (7.0-11.0); Mono # (Auto) 0.6 th/mm3 (0.0-0.9); Mono % (Auto) 6.6 % (0.0-8.0); Neut # (Auto) 6.6 th/mm3 (1.8-7.7); Neut % (Auto) 71.6 % (16.0-70.0); Platelet Count 80 th/mm3 (150-450); Red Blood Count 3.11 mil/mm3 (4.00-5.30); Red Cell Distribution Width 14.3 % (11.6-17.2); White Blood Count 9.2 th/mm3 (4.0-11.0)
[2018-07-24] MEDS ORDERED: Bisacodyl 10 MG Supp RECTAL PRN (15:11)
[2018-07-24 15:21] LABS: Activated Partial Thrombo Time 33.8 sec (23.4-31.7); INR 1.1 Ratio; Prothrombin Time 10.7 sec (9.8-11.6)
[2018-07-24 15:23] LABS: Alanine Aminotransferase 16 U/L (10-53); Albumin 3.7 g/dL (3.4-5.0); Anion Gap 6 meq/L (5-15); Aspartate Aminotransferase 18 U/L (15-37); Blood Urea Nitrogen 22 mg/dL (7-18); Calcium 8.5 mg/dL (8.5-10.1); Carbon Dioxide 29.2 meq/L (21.0-32.0); Chloride 100 meq/L (98-107); Glomerular Filtration Rate 42 mL/min (>89); Glucose,Random 101 mg/dL (74-106); Magnesium 1.9 mg/dL (1.5-2.5); Potassium 4.2 meq/L (3.5-5.1); Sodium 135 meq/L (136-145)
[2018-07-24 15:25] LABS: Alkaline Phosphatase 98 U/L (45-117); Total Protein 7.1 g/dL (6.4-8.2)
[2018-07-24] MEDS: Sod Chloride 0.9% Inj 1,000 ML IV.CONT SCH (15:26)
[2018-07-24 15:40] LABS: Platelet Morphology Normal (Normal)
--- NOTE | 2018-07-24 17:00 | P.HPCC ---
History of Present Illness Service: Critical care medicine Primary Care Physician: Tima Mccracken MD Chief Complaint: Headache History of Present Illness: This 78-year-old woman presented to the [facility] emergency department with a worsening right-sided headache this morning. CAT scan of the head revealed a moderate size right subdural hematoma, chronic, with midline shift. She is verbal and awake but mildly confused. Her history is significant for a fall on July 01 during which she fractured her left wrist, sprained her right wrist, and developed a small subdural. She developed cirrhosis of the liver from chronic nonsteroidal anti-inflammatory use and has not had major problems with bleeding. However she does run a chronically low platelet level which is 90,000 today. Her record indicates a past history of atrial fibrillation but she was in sinus mechanism on the last admission and remains so. - Diagnosis (1) Chronic intracranial subdural hematoma (2) Cirrhosis (3) Thrombocytopenia Inpatient Certification: I certify that the inpatient services were ordered in accordance with Medicare regulations governing the order. This includes certification that hospital inpatient services are reasonable and necessary and in the case of services not specified as inpatient-only under 42 CFR 419.22(n), that they are appropriately provided as inpatient services in accordance to with the 2-midnight benchmark under 43 CFR 412.3(e) Estimated Total Length of Stay (Days): 5 Plans for Post Hospital Care: Home Review of Systems Headache, no chest pain or shortness of breath. No vomiting no seizures. PMFSH - History History Provided By: Patient - Medical History Medical History: Medical History (Last Reviewed 07/24/18 @ 14:32 by Rosanne Zavaleta MD) Atrial fibrillation FH: total knee replacement Platelet count less 100,000 per cubic millimeter - Tobacco History Second Hand Smoke Exposure: No Smoking Status: Never smoker - Alcohol History How Often Do You Have a Drink Containing Alcohol: Never - Substance Use History Substance History: No History of Abuse - Travel History Recent Travel in the [place] Within the Last 8 Weeks: No Recent Travel Out of the Country Within the Last 8 Weeks: No - Immunization History Tetanus Immunization: <5 Years Tetanus Immunization Year if Known: 2017 Medications and Allergies Active Medications: Active Medications Acetaminophen (Tylenol) 650 mg PO Q6H PRN PRN Reason: PAIN 1-10 AND/OR FEVER >101F Al Hydroxide/Mg Hydroxide (Milk Of Magnesia Liq) 30 ml PO Q12H PRN PRN Reason: Mild Constipation Albuterol (Duoneb Neb (Prn)) 1 ampul NEB Q2HR NEB PRN PRN Reason: WHEEZING Bisacodyl (Dulcolax Supp) 10 mg RECTAL DAILY PRN PRN Reason: SEVERE CONSITIPATION Chlorhexidine Gluconate (Chlorhexidine 2% Cloth) 3 pack TOPICAL DAILY@0400 [facility] Stop: 07/30/18 03:59 Chlorhexidine Gluconate (Chlorhexidine 2% Cloth) 3 pack TOPICAL DAILY@0400 PRN PRN Reason: Extra cloth needed Stop: 07/30/18 03:59 Famotidine (Pepcid) 20 mg PO BID [facility] Sodium Chloride (Ns Inj) 1,000 mls @ 100 mls/hr IV.CONT .Q10H [facility] Last Admin: 07/24/18 15:26 Dose: 100 mls/hr Lactulose (Lactulose Liq) 30 ml PO DAILY PRN PRN Reason: SEVERE CONSITIPATION Ondansetron HCl (Zofran Inj) 4 mg IV.PUSH Q6H PRN PRN Reason: NAUSEA OR VOMITING Senna/Docusate Sodium (Gypsy-Colace) 1 tab PO BID [facility] Sennosides (Senokot) 17.2 mg PO Q12H PRN PRN Reason: Moderate Constipation Sodium Chloride (Ns Flush) 2 ml IV.FLUSH PRN PRN PRN Reason: FLUSH AFTER USING IV ACCESS Sodium Chloride (Ns Flush) 2 ml IV.FLUSH BID [facility] Sodium Chloride (Ns Flush) 2 ml IV.FLUSH PRN PRN PRN Reason: FLUSH AFTER USING IV ACCESS Allergies Allergy/AdvReac Type Severity Reaction Status Date / Time carbamazepine [From Tegretol] Allergy Hallucinati Verified 07/01/18 20:08 ons codeine Allergy Rash Verified 07/01/18 20:08 lisinopril Allergy Hallucinati Verified 07/01/18 20:08 ons meloxicam [From Mobic] Allergy Atrial Verified 07/01/18 20:08 Fibrillation Home Medications Medication Instructions Recorded Confirmed Type allopurinol 300 mg PO DAILY 07/01/18 07/24/18 History furosemide [Lasix] 40 mg PO EVERY OTHER DAY 07/01/18 07/24/18 History levothyroxine [Synthroid] 25 mcg PO DAILY 07/01/18 07/24/18 History propranolol 20 mg PO BID 07/01/18 07/24/18 History rifaximin [Xifaxan] 550 mg PO BID 07/01/18 07/24/18 History spironolactone [Aldactone] 50 mg PO EVERY OTHER DAY 07/01/18 07/24/18 History folic acid 0.4 mg PO DAILY 07/24/18 07/24/18 History polyethylene glycol 3350 [Miralax] 17 g PO DAILY PRN 07/24/18 07/24/18 History Results - Labs CBC & Chem 7: 07/24/18 14:32 07/24/18 14:32 Labs: Short CBC 07/24/18 Range/Units 14:32 WBC 9.2 (4.0-11.0) th/mm3 Hgb 10.5 L (11.6-15.3) gm/dL Hct 30.4 L (35.0-46.0) % Plt Count 80 L (150-450) th/mm3 BMP 07/24/18 14:32 Sodium 135 L Potassium 4.2 Chloride 100 Carbon Dioxide 29.2 BUN 22 H Creatinine 1.22 H Calcium 8.5 Liver Function 07/24/18 Range/Units 14:32 Total Bilirubin 0.8 (0.2-1.0) mg/dL AST 18 (15-37) U/L ALT 16 (10-53) U/L Alkaline Phosphatase 98 (45-117) U/L Albumin 3.7 (3.4-5.0) g/dL Exam Vital signs: Vital Signs 07/24/18 14:24 07/24/18 14:28 07/24/18 15:24 Temperature 98.8 F 98.9 F Pulse Rate 87 84 96 H Respiratory Rate 16 19 Blood Pressure 178/76 H 137/92 H Pulse Oximetry 98 07/24/18 15:45 Temperature Pulse Rate Respiratory Rate Blood Pressure Pulse Oximetry 98 Intake & Output 07/23/18 07/24/18 07/24/18 18:59 06:59 18:59 Weight 73.482 kg Narrative: General: Alert, conversant, oriented to place and name. Head: Normal Neck: Supple, airway widely patent Lungs: Clear bilaterally without wheezes or crackles. Comfortable respiratory pattern Heart: Regular rate and rhythm, normal S1-S2, no JVD. Abdomen: Soft, nondistended, no guarding, bowel sounds active. Extremities: Both wrists in splints. Distal circulation intact both hands. Warm and well-perfused. Neuro: Pupils equal and reactive to light. Moves 4 limbs to command. Unable to test strength. Speech clear. Increasing confusion according to family at bedside. Caprini VTE Risk Assessment Caprini VTE Risk Assessment: No/Low Risk (score <= 1) VTE Pharmacological Exception Reason: High risk for bleeding Caprini Risk Assessment Model: Point Value = 1 Point Value = 2 Point Value = 3 Point Value = 5 Age 41-60 Minor surgery BMI > 25 kg/m2 Swollen legs Varicose veins or History of unexplained or recurrent spontaneous Oral contraceptives or hormone replacement Sepsis (< 1 month) Serious lung disease, including pneumonia (< 1 month) Abnormal pulmonary function Acute myocardial infarction Congestive heart failure (< 1 month) History of inflammatory bowel disease Medical patient at bed rest Age 61-74 Arthroscopic surgery Major open surgery (> 45 min) Laparoscopic surgery (> 45 min) Malignancy Confined to bed (> 72 hours) Immobilizing plaster cast Central venous access Age >= 75 History of VTE Family history of VTE Factor V Leiden Prothrombin [id number] Lupus anticoagulant Anticardiolipin antibodies Elevated serum homocysteine Heparin-induced thrombocytopenia Other congenital or acquired thrombophilia Stroke (< 1 month) Elective arthroplasty Hip, pelvis, or leg fracture Acute spinal cord injury (< 1 month) Prophylaxis Regimen: Total Risk Factor Score Risk Level Prophylaxis Regimen 0-1 Low Early ambulation 2 Moderate Order ONE of the following: *Sequential Compression Device (SCD) *Heparin 5000 units SQ BID 3-4 Higher Order ONE of the following medications: *Heparin 5000 units SQ TID *Enoxaparin/Lovenox 40 mg SQ daily (WT < 150 kg, CrCl > 30 mL/min) *Enoxaparin/Lovenox 30 mg SQ daily (WT < 150 kg, CrCl > 10-29 mL/min) *Enoxaparin/Lovenox 30 mg SQ BID (WT < 150 kg, CrCl > 30 mL/min) AND/OR *Sequential Compression Device (SCD) 5 or more Highest Order ONE of the following medications: *Heparin 5000 units SQ TID (Preferred with Epidurals) *Enoxaparin/Lovenox 40 mg SQ daily (WT < 150 kg, CrCl > 30 mL/min) *Enoxaparin/Lovenox 30 mg SQ daily (WT < 150 kg, CrCl > 10-29 mL/min) *Enoxaparin/Lovenox 30 mg SQ BID (WT < 150 kg, CrCl > 30 mL/min) AND *Sequential Compression Device (SCD) Assessment and Plan - Problem List (1) Chronic intracranial subdural hematoma Code(s): I62.03 - Nontraumatic chronic subdural hemorrhage Status: Acute (2) Cirrhosis Code(s): K74.60 - Unspecified cirrhosis of liver Status: Acute (3) Thrombocytopenia Code(s): D69.6 - Thrombocytopenia, unspecified Status: Acute - Assessment and Plan Plan: Assessment: 1. Chronic right-sided subdural hematoma, post traumatic 2. Chronic cirrhosis 3. Chronic thrombocytopenia 4. History of atrial fibrillation, now NSR Plan: 1. Admit intensive care unit 2. Serial neurologic checks 3. ECG to confirm sinus mechanism 4. Head of bed up 30 degrees 5. Check coagulation profile 6. Restart home medications, hold antiplatelet drugs 7. SCDs for DVT prophylaxis 8. Chemical DVT prophylaxis contraindicated 9. Pepcid for GI ulcer prophylaxis 10. Repeat head CT Overall impression: This woman has developed a symptomatic chronic right subdural hematoma with a small midline shift approximately 3 weeks following a fall. Her care is modestly complicated by age, chronic thrombocytopenia, cirrhosis, she has seen the neurosurgeon in consultation and arrangements have been made for her to have a subdural hematoma evacuated in the morning.
--- NOTE | 2018-07-24 17:10 | P.CONNS ---
History of Present Illness Service: Neurosurgery Requesting Physician: Rosanne Zavaleta Primary Care Provider: Tima Mccracken MD Chief Complaint: Confusion History of Present Illness: This 78-year-old woman presented to the [facility] emergency department with a worsening right-sided headache and confusion this morning. Apparently she had a fall on July 01 and has had a persistent headaches, worse last night.No LOC. No seizure activity. No tongue bitting. no incontinence of stool or urine. She was transfered with a right sided a subdural hematoma. Her CAT scan of the head revealed a moderate size right subdural hematoma, chronic, with midline shift. She is verbal and awake but mildly confused. Her history is significant for a fall on July 01 during which she fractured her left wrist, sprained her right wrist, and developed a small subdural hematoma. She has cirrhosis of the liver from chronic nonsteroidal anti-inflammatory use and has not had major problems with bleeding. However she does run a chronically low platelet level which is 90, 000 today. She denies focal weakness. Denies sensory loss. She has a past history of atrial fibrillation but she was in sinus rythm. Neurosurgery consultation was requested Her family history was reviewed and was noncontributory to the present admission Review of Systems All other systems reviewed negative except as stated in HPI [facility] - History History Provided By: Patient - Medical History Medical History: Medical History (Last Reviewed 07/25/18 @ 21:50 by Sohail Levy MD) Atrial fibrillation FH: total knee replacement Platelet count less 100,000 per cubic millimeter - Tobacco History Second Hand Smoke Exposure: No Smoking Status: Never smoker - Alcohol History How Often Do You Have a Drink Containing Alcohol: Never - Substance Use History Substance History: No History of Abuse - Travel History Recent Travel in the [place] Within the Last 8 Weeks: No Recent Travel Out of the Country Within the Last 8 Weeks: No - Immunization History Tetanus Immunization: <5 Years Tetanus Immunization Year if Known: 2018 Medications and Allergies Active Medications: Active Medications Acetaminophen (Tylenol) 650 mg PO Q6H PRN PRN Reason: PAIN 1-10 AND/OR FEVER >101F Al Hydroxide/Mg Hydroxide (Milk Of Magnesia Liq) 30 ml PO Q12H PRN PRN Reason: Mild Constipation Albuterol (Duoneb Neb (Prn)) 1 ampul NEB Q2HR NEB PRN PRN Reason: WHEEZING Bisacodyl (Dulcolax Supp) 10 mg RECTAL DAILY PRN PRN Reason: SEVERE CONSITIPATION Chlorhexidine Gluconate (Chlorhexidine 2% Cloth) 3 pack TOPICAL DAILY@0400 [facility] Stop: 07/30/18 03:59 Chlorhexidine Gluconate (Chlorhexidine 2% Cloth) 3 pack TOPICAL DAILY@0400 PRN PRN Reason: Extra cloth needed Stop: 07/30/18 03:59 Famotidine (Pepcid) 20 mg PO BID [facility] Sodium Chloride (Ns Inj) 1,000 mls @ 100 mls/hr IV.CONT .Q10H [facility] Last Admin: 07/24/18 15:26 Dose: 100 mls/hr Lactulose (Lactulose Liq) 30 ml PO DAILY PRN PRN Reason: SEVERE CONSITIPATION Ondansetron HCl (Zofran Inj) 4 mg IV.PUSH Q6H PRN PRN Reason: NAUSEA OR VOMITING Senna/Docusate Sodium (Gypsy-Colace) 1 tab PO BID [facility] Sennosides (Senokot) 17.2 mg PO Q12H PRN PRN Reason: Moderate Constipation Sodium Chloride (Ns Flush) 2 ml IV.FLUSH PRN PRN PRN Reason: FLUSH AFTER USING IV ACCESS Sodium Chloride (Ns Flush) 2 ml IV.FLUSH BID [facility] Sodium Chloride (Ns Flush) 2 ml IV.FLUSH PRN PRN PRN Reason: FLUSH AFTER USING IV ACCESS Allergies Allergy/AdvReac Type Severity Reaction Status Date / Time carbamazepine [From Tegretol] Allergy Hallucinati Verified 07/01/18 20:08 ons codeine Allergy Rash Verified 07/01/18 20:08 lisinopril Allergy Hallucinati Verified 07/01/18 20:08 ons meloxicam [From Mobic] Allergy Atrial Verified 07/01/18 20:08 Fibrillation Home Medications Medication Instructions Recorded Confirmed Type allopurinol 300 mg PO DAILY 07/01/18 07/24/18 History furosemide [Lasix] 40 mg PO EVERY OTHER DAY 07/01/18 07/24/18 History levothyroxine [Synthroid] 25 mcg PO DAILY 07/01/18 07/24/18 History propranolol 20 mg PO BID 07/01/18 07/24/18 History rifaximin [Xifaxan] 550 mg PO BID 07/01/18 07/24/18 History spironolactone [Aldactone] 50 mg PO EVERY OTHER DAY 07/01/18 07/24/18 History folic acid 0.4 mg PO DAILY 07/24/18 07/24/18 History polyethylene glycol 3350 [Miralax] 17 g PO DAILY PRN 07/24/18 07/24/18 History Exam Vital signs: Vital Signs 07/24/18 14:24 07/24/18 14:28 07/24/18 15:24 Temperature 98.8 F 98.9 F Pulse Rate 87 84 96 H Respiratory Rate 16 19 Blood Pressure 178/76 H 137/92 H Pulse Oximetry 98 07/24/18 15:45 Temperature Pulse Rate Respiratory Rate Blood Pressure Pulse Oximetry 98 Intake & Output 07/23/18 07/24/18 07/24/18 18:59 06:59 18:59 Weight 73.482 kg Narrative: The patient is alert, awake and oriented to self Cranial nerve examination demonstrates the pupils to be equal, round, and reactive to light. Extra-ocular movements are intact with normal convergence. Facial motornormal and symmetrical.face sensation,hearing, visual acuity, taste, and olfaction can not be assessed due to the patient's neurological condition.Sternocleidomastoid and deltoid musclesasymmetrical. Neck is soft and supple. Muscle testing revealsnormal bulk and tonewith gross normalstrength in both upper and lowerextremities Sensory examination isgrossly normal Deep tendon reflexes are1+ and symmetrical in upper andlower extremities. Bilateral plantar flexion response. Hoffmanns sign is negative. There is no clonus or other abnormal reflexes noted. Cerebellar examinationcan not be assessed due the patient's neurological condition Lungs: clear Heart: Regular rhythm and rate Skin: warm and dry Results - Laboratory Findings CBC and BMP: 07/25/18 03:35 07/25/18 03:35 Abnormal lab findings: Abnormal Labs 07/24/18 07/24/18 07/24/18 14:32 14:32 14:32 RBC 3.11 L Hgb 10.5 L Hct 30.4 L Plt Count 80 L Neut % (Auto) 71.6 H Platelet Estimate Low L APTT 33.8 H Sodium 135 L BUN 22 H Creatinine 1.22 H Estimated GFR 42 L Assessment and Plan - Plan - Problem List (1) Chronic intracranial subdural hematoma Code(s): I62.03 - Nontraumatic chronic subdural hemorrhage Status: Acute (2) Cirrhosis Code(s): K74.60 - Unspecified cirrhosis of liver Status: Acute (3) Thrombocytopenia Code(s): D69.6 - Thrombocytopenia, unspecified Status: Acute I have reviewed the clinical and radiological findings Head CT 07/24/18 14:44 CONCLUSION: 1. 1 cm fairly uniform low-density right frontoparietal subdural hygroma increased in size in comparison to 07/01/2018 CT exam which demonstrated more acute subdural blood products. There is now associated mass effect with 5 mm [id number]-[id number] subfalcine shift. . Neuro: neuro checks in a serial fashion.I discussed her clinical and radiological findngs. I recommend evacuation of the subdural hematoma via a izzy hole and possible craniotomy. Alexa discussed the [id number] details of the surgical procedure, its indications, alternatives, risks, and potential complications. Risks and potential complications include, but are not limited to, infection, blood loss, CSF leak, partial or complete loss of sight in one or both eyes, paresis, paralysis, permanent pain or difficulty swallowing, loss of bowel or bladder function, complications from anesthesia, blood clot, stroke, myocardial infarction, or even . The possibility of nonoperative treatment has been offered. Pulmonary: aggressive pulmonary toilette, nasotracheal suction, and breathing treatments with nebulizers. Daily PT and OT Cirrhopsis. Will obtain baseline liver function studies Thrombocytopenia. Monitor and transfuse of further drop in platelet count. Needs a count to at least 100k fir surgery Renal: Continue to monitor closely urine output, BUN and creatinine Endocrine: Continue to Monitor serial Acu checks and SSI as needed in detail ID continue to monitor for signs of infection Continue Protonix for stress ulcer prophylaxis Continue Jose hose and SCD's for DVT prophylaxis Further recommendations will be provided depending on the patient's clinical evaluation and follow up studies.
--- NOTE | 2018-07-24 17:21 | CT ---
EXAM DATE: 07/24/2018 5:07 PM EST AGE/SEX: 78 years / Female INDICATIONS: Right side headache. Recent intracranial hemorrhage. CLINICAL DATA: This is the patient's initial encounter. Patient reports that signs and symptoms have been present for 2 days and indicates a pain score of 10/10. MEDICAL/SURGICAL HISTORY: . Intracranial hemorrhage, atrial fibrillation. None. RADIATION DOSE: 56.35 CTDI (mGy) COMPARISON: [facility], CT HEAD W/O CONTRAST, 07/01/2018. . TECHNIQUE: CT of the head without contrast. Using automated exposure control and adjustment of the mA and/or kV according to patient size, radiation dose was kept as low as reasonably achievable to ob tain optimal diagnostic quality images. DICOM format image data is available electronically for revi ew and comparison. FINDINGS: Cerebrum: There is a 1 cm nearly uniform hypodense CSF density subdural hygroma in the right frontopa rietal mid to high convexities. Mild associated mass effect with approximately 5 mm [id number] sub falcine shift. This has progressed from recent prior exam. Moderate diffuse cerebral atrophy. The farhat tricles are normal for degree of atrophy. No evidence of acute hemorrhage or acute infarction. No ex traaxial fluid collections are seen. Posterior Fossa: The cerebellum and brainstem are intact. The 4th ventricle is midline. The cerebe llopontine angle is unremarkable. Extracranial: The visualized portion of the orbits is intact. Skull: The calvaria is intact. No evidence of skull fracture. CONCLUSION: 1. 1 cm fairly uniform low-density right frontoparietal subdural hygroma increased in size in compar pat to 07/01/2018 CT exam which demonstrated more acute subdural blood products. There is now associa daryn mass effect with 5 mm [id number]-[id number] subfalcine shift. . Electronically signed by: Austin Hutchinson MD 07/24/2018 5:20 PM EST
[2018-07-24] MEDS: Acetaminophen 325 MG Tablet PO PRN (20:02)
[2018-07-24] MEDS: Famotidine 20 MG Tablet PO SCH (20:46)
[2018-07-24] MEDS: Senna/Docusate Sodium 8.6/50 MG Tablet PO SCH (20:46)
[2018-07-24 22:13] LABS: Bacteria,Urine Rare /hpf; Bilirubin,Urine Negative (Negative); Clarity,Urine Clear (Clear); Color,Urine Yellow (Yellw/Straw); Glucose,Urine (UA) Negative (Negative); Leukocyte Esterase,Urine Moderate (Negative); Mucus,Urine Few /lpf (Occasional); Nitrite,Urine Negative (Negative); Specific Gravity,Urine 1.013 (1.002-1.035); Squamous Epithelial Cell,Urine <1 /hpf (0-5)
[2018-07-25] MEDS ORDERED: Chlorhexidine Gluconate 2% 1 Pack (2 Cloths) TOPICAL PRN (04:00)
[2018-07-25 04:38] LABS: Baso % (Auto) 0.8 % (0.0-2.0); Eos # (Auto) 0.1 th/mm3 (0.0-0.4); Eos % (Auto) 1.7 % (0.0-4.0); Hematocrit 26.5 % (35.0-46.0); Lymph # (Auto) 1.9 th/mm3 (1.0-4.8); Lymph % (Auto) 31.1 % (9.0-44.0); Mean Corpuscular HGB Conc 33.9 % (32.0-36.0); Mean Corpuscular Hemoglobin 33.6 pg (27.0-34.0); Mean Corpuscular Volume 99.2 fL (80.0-100.0); Mean Platelet Volume 9.5 fL (7.0-11.0); Mono # (Auto) 0.6 th/mm3 (0.0-0.9); Mono % (Auto) 10.2 % (0.0-8.0); Neut # (Auto) 3.5 th/mm3 (1.8-7.7); Neut % (Auto) 56.2 % (16.0-70.0); Platelet Count 64 th/mm3 (150-450); Red Blood Count 2.67 mil/mm3 (4.00-5.30); Red Cell Distribution Width 14.3 % (11.6-17.2); White Blood Count 6.3 th/mm3 (4.0-11.0)
[2018-07-25 04:48] LABS: INR 1.1 Ratio; Prothrombin Time 10.8 sec (9.8-11.6)
[2018-07-25 04:58] LABS: Calcium 8.2 mg/dL (8.5-10.1); Carbon Dioxide 28.5 meq/L (21.0-32.0); Magnesium 1.8 mg/dL (1.5-2.5); Phosphorus 3.4 mg/dL (2.5-4.9); Potassium 3.6 meq/L (3.5-5.1)
[2018-07-25] MEDS: Sod Chloride 0.9% Inj 1,000 ML IV.CONT SCH ×3 (05:30→23:04)
[2018-07-25] MEDS: Chlorhexidine Gluconate 2% 1 Pack (2 Cloths) TOPICAL SCH (05:30)
[2018-07-25 06:38] LABS: Platelet Morphology Normal (Normal)
[2018-07-25] MEDS: Famotidine 20 MG Tablet PO SCH ×2 (08:03→20:08)
[2018-07-25] MEDS: Senna/Docusate Sodium 8.6/50 MG Tablet PO SCH ×2 (08:03→20:08)
[2018-07-25] MEDS: Acetaminophen 325 MG Tablet PO PRN (13:02)
--- NOTE | 2018-07-25 14:17 | P.PNCC ---
Subjective Subjective Remarks/Hospital Course: This 78-year-old woman presented to the [facility] emergency department with a worsening right-sided headache this morning. CAT scan of the head revealed a moderate size right subdural hematoma, chronic, with midline shift. She is verbal and awake but mildly confused. Her history is significant for a fall on July 01 during which she fractured her left wrist, sprained her right wrist, and developed a small subdural. She developed cirrhosis of the liver from chronic nonsteroidal anti-inflammatory use and has not had major problems with bleeding. However she does run a chronically low platelet level which is 90,000 today. Her record indicates a past history of atrial fibrillation but she was in sinus mechanism on the last admission and remains so. 07/25: Stable hemodynamics and respiratory status. Stable for subdural evacuation today. May need platelet transfusion perioperatively. - Diagnosis (1) Chronic intracranial subdural hematoma (2) Cirrhosis (3) Thrombocytopenia Objective Vital Signs / I&O: Vital Signs 07/24/18 14:24 07/24/18 14:28 07/24/18 15:24 Temperature 98.8 F 98.9 F Pulse Rate 87 84 96 H Respiratory Rate 16 19 Blood Pressure 178/76 H 137/92 H Pulse Oximetry 98 07/24/18 15:45 07/24/18 16:50 07/24/18 17:54 Temperature Pulse Rate 78 Respiratory Rate 18 Blood Pressure 137/82 Pulse Oximetry 98 98 07/24/18 18:00 07/24/18 18:02 07/24/18 18:26 Temperature Pulse Rate 76 75 76 Respiratory Rate 23 43 H 52 H Blood Pressure 169/70 H 137/63 Pulse Oximetry 98 98 99 07/24/18 19:00 07/24/18 19:23 07/24/18 19:42 Temperature 98.4 F Pulse Rate 74 81 Respiratory Rate 29 H 45 H Blood Pressure 170/70 H 170/70 H Pulse Oximetry 98 96 07/24/18 20:00 07/24/18 20:12 07/24/18 20:23 Temperature 98.4 F Pulse Rate 77 63 77 Respiratory Rate 31 H 44 H 58 H Blood Pressure 133/63 133/63 139/62 Pulse Oximetry 98 98 99 07/24/18 20:47 07/24/18 21:04 07/24/18 21:23 Temperature Pulse Rate 77 60 Respiratory Rate 15 29 H 16 Blood Pressure 141/64 H Pulse Oximetry 98 96 07/24/18 22:00 07/24/18 22:23 07/24/18 22:28 Temperature Pulse Rate 63 69 Respiratory Rate 16 40 H Blood Pressure 141/64 H 157/71 H Pulse Oximetry 98 98 07/24/18 23:00 07/24/18 23:23 07/24/18 23:32 Temperature Pulse Rate 62 77 75 Respiratory Rate 18 25 H 32 H Blood Pressure 113/52 L 156/120 H 113/52 L Pulse Oximetry 95 98 95 07/25/18 00:00 07/25/18 00:23 07/25/18 01:00 Temperature 98.7 F Pulse Rate 76 67 70 Respiratory Rate 32 H 17 18 Blood Pressure 149/61 H Pulse Oximetry 94 L 95 95 07/25/18 01:23 07/25/18 02:00 07/25/18 02:23 Temperature Pulse Rate 74 73 61 Respiratory Rate 22 18 20 Blood Pressure 130/60 111/55 L Pulse Oximetry 95 94 L 95 07/25/18 03:00 07/25/18 03:23 07/25/18 04:00 Temperature 98.7 F Pulse Rate 68 77 65 Respiratory Rate 18 33 H 15 Blood Pressure 120/62 114/65 Pulse Oximetry 96 97 96 07/25/18 05:00 07/25/18 05:02 07/25/18 05:23 Temperature Pulse Rate 62 62 61 Respiratory Rate 25 H 32 H 15 Blood Pressure 114/65 114/65 118/56 L Pulse Oximetry 96 95 93 L 07/25/18 06:00 07/25/18 06:23 07/25/18 07:14 Temperature Pulse Rate 62 60 86 Respiratory Rate 20 13 Blood Pressure 115/56 L 115/56 L Pulse Oximetry 96 96 82 L 07/25/18 07:23 07/25/18 07:28 07/25/18 07:31 Temperature Pulse Rate 82 79 Respiratory Rate 53 H 24 Blood Pressure 117/60 Pulse Oximetry 98 98 07/25/18 08:00 07/25/18 08:23 07/25/18 09:00 Temperature 98 F Pulse Rate 84 69 66 Respiratory Rate 31 H 18 19 Blood Pressure 124/60 Pulse Oximetry 98 97 98 07/25/18 10:00 07/25/18 10:07 07/25/18 10:23 Temperature Pulse Rate 79 75 81 Respiratory Rate 21 20 23 Blood Pressure 137/63 126/58 L Pulse Oximetry 96 98 97 07/25/18 11:00 07/25/18 11:23 07/25/18 12:00 Temperature 98.9 F Pulse Rate 86 80 72 Respiratory Rate 21 20 18 Blood Pressure 130/61 Pulse Oximetry 99 98 97 07/25/18 12:23 Temperature Pulse Rate 94 H Respiratory Rate 18 Blood Pressure 154/72 H Pulse Oximetry Intake & Output 07/24/18 07/25/18 07/25/18 18:59 06:59 18:59 Intake Total 300 / 300 1420 / 1420 950 / 950 Output Total 450 / 450 800 / 800 Balance -150 / -150 620 / 620 950 / 950 Weight 73.482 kg 75.1 kg Intake: IV 1000 / 1000 950 / 950 NS Inj 1,000 ML @ 100 mls/hr IV 1000 / 1000 950 / 950 .CONT .Q10H LILO Rx#:[id number] Oral 300 / 300 420 / 420 Output: Urine 450 / 450 800 / 800 Stool 0 / 0 Other: Weight On Admission 75.1 kg Result Diagrams: 07/25/18 03:35 07/25/18 03:35 Objective Remarks: Narrative: General: Alert, conversant, oriented to place and name. Forgetful. Head: Normal Neck: Supple, airway widely patent, no obstructive noises. Lungs: Clear bilaterally without wheezes or crackles. Comfortable respiratory pattern Heart: Regular rate and rhythm, normal S1-S2, no JVD. Abdomen: Soft, nondistended, no guarding, bowel sounds active. Extremities: Both wrists in splints. Distal circulation intact both hands. Neuro: Pupils equal and reactive to light. Moves 4 limbs to command. Unable to test strength. Speech clear. Assessment and Plan - Problem List (1) Chronic intracranial subdural hematoma Code(s): I62.03 - Nontraumatic chronic subdural hemorrhage Status: Acute (2) Cirrhosis Code(s): K74.60 - Unspecified cirrhosis of liver Status: Acute (3) Thrombocytopenia Code(s): D69.6 - Thrombocytopenia, unspecified Status: Acute - Assessment and Plan Plan: Assessment: 1. Chronic right-sided subdural hematoma, post traumatic 2. Chronic cirrhosis 3. Chronic thrombocytopenia 4. History of atrial fibrillation, now NSR Plan: 1. Stable for subdural decompression today. 2. Continue serial neurologic checks 3. ECG to confirm sinus mechanism, done 4. Head of bed up 30 degrees 5. Check coagulation profile, acceptable 6. Restart home medications, hold antiplatelet drugs 7. SCDs for DVT prophylaxis 8. Chemical DVT prophylaxis contraindicated 9. Pepcid for GI ulcer prophylaxis 10. Repeat head CT, enlarging subdural hematoma Overall impression: This woman has developed a symptomatic chronic right subdural hematoma with a small midline shift approximately 3 weeks following a fall. Her care is modestly complicated by age, chronic thrombocytopenia, cirrhosis, she has seen the neurosurgeon in consultation and arrangements have been made for her to have a subdural hematoma evacuated in the morning. She is ready for the OR.
[2018-07-25] MEDS ORDERED: Sodium Chlor 0.9% Inj 250 ML ONE (14:24)
[2018-07-25] MEDS ORDERED: Gelatin Size 100 Topical Foam ONE (14:24)
[2018-07-25] MEDS ORDERED: Thrombin Topical Soln 5,000 UNIT Vial TOPICAL ONE (14:24)
[2018-07-25] MEDS ORDERED: Polyethylene Glycol 3350 17 GM Packet PO PRN (17:16)
[2018-07-25] MEDS: Allopurinol 300 MG Tablet PO SCH (18:39)
[2018-07-25] MEDS: rifAXIMin 550 MG Tablet PO SCH (20:08)
--- NOTE | 2018-07-25 22:02 | P.PNNS ---
Subjective Interval history: This 78-year-old woman presented to the [facility] emergency department with a worsening right-sided headache and confusion this morning. Apparently she had a fall on July 01 and has had a persistent headaches, worse last night.No LOC. No seizure activity. No tongue bitting. no incontinence of stool or urine. She was transfered with a right sided a subdural hematoma. Her CAT scan of the head revealed a moderate size right subdural hematoma, chronic, with midline shift. She is verbal and awake but mildly confused. Her history is significant for a fall on July 01 during which she fractured her left wrist, sprained her right wrist, and developed a small subdural hematoma. She has cirrhosis of the liver from chronic nonsteroidal anti-inflammatory use and has not had major problems with bleeding. However she does run a chronically low platelet level which is 90, 000 today. She denies focal weakness. Denies sensory loss. She has a past history of atrial fibrillation but she was in sinus rythm. Neurosurgery consultation was requested 07/25. She is alert and awake, GCS 15. She remains thrombocytopenic. reports persistent severe headaches Physical Exam Vital signs: Vital Signs 07/24/18 22:00 07/24/18 22:23 07/24/18 22:28 Temperature Pulse Rate 63 69 Respiratory Rate 16 40 H Blood Pressure 141/64 H 157/71 H Pulse Oximetry 98 98 07/24/18 23:00 07/24/18 23:23 07/24/18 23:32 Temperature Pulse Rate 62 77 75 Respiratory Rate 18 25 H 32 H Blood Pressure 113/52 L 156/120 H 113/52 L Pulse Oximetry 95 98 95 07/25/18 00:00 07/25/18 00:23 07/25/18 01:00 Temperature 98.7 F Pulse Rate 76 67 70 Respiratory Rate 32 H 17 18 Blood Pressure 149/61 H Pulse Oximetry 94 L 95 95 07/25/18 01:23 07/25/18 02:00 07/25/18 02:23 Temperature Pulse Rate 74 73 61 Respiratory Rate 22 18 20 Blood Pressure 130/60 111/55 L Pulse Oximetry 95 94 L 95 07/25/18 03:00 07/25/18 03:23 07/25/18 04:00 Temperature 98.7 F Pulse Rate 68 77 65 Respiratory Rate 18 33 H 15 Blood Pressure 120/62 114/65 Pulse Oximetry 96 97 96 07/25/18 05:00 07/25/18 05:02 07/25/18 05:23 Temperature Pulse Rate 62 62 61 Respiratory Rate 25 H 32 H 15 Blood Pressure 114/65 114/65 118/56 L Pulse Oximetry 96 95 93 L 07/25/18 06:00 07/25/18 06:23 07/25/18 07:14 Temperature Pulse Rate 62 60 86 Respiratory Rate 20 13 Blood Pressure 115/56 L 115/56 L Pulse Oximetry 96 96 82 L 07/25/18 07:23 07/25/18 07:28 07/25/18 07:31 Temperature Pulse Rate 82 79 Respiratory Rate 53 H 24 Blood Pressure 117/60 Pulse Oximetry 98 98 07/25/18 08:00 07/25/18 08:23 07/25/18 09:00 Temperature 98 F Pulse Rate 84 69 66 Respiratory Rate 31 H 18 19 Blood Pressure 124/60 Pulse Oximetry 98 97 98 07/25/18 10:00 07/25/18 10:07 07/25/18 10:23 Temperature Pulse Rate 79 75 81 Respiratory Rate 21 20 23 Blood Pressure 137/63 126/58 L Pulse Oximetry 96 98 97 07/25/18 11:00 07/25/18 11:23 07/25/18 12:00 Temperature 98.9 F Pulse Rate 86 80 72 Respiratory Rate 21 20 18 Blood Pressure 130/61 Pulse Oximetry 99 98 97 07/25/18 12:23 07/25/18 14:20 07/25/18 14:25 Temperature 99.1 F Pulse Rate 94 H 82 89 Respiratory Rate 18 26 H 22 Blood Pressure 154/72 H 173/71 H Pulse Oximetry 97 07/25/18 14:27 07/25/18 14:29 07/25/18 14:30 Temperature 99.1 F Pulse Rate 85 83 82 Respiratory Rate 24 28 H 46 H Blood Pressure 173/71 H 172/73 H Pulse Oximetry 94 L 99 99 07/25/18 14:45 07/25/18 15:00 07/25/18 15:04 Temperature Pulse Rate 81 106 H 80 Respiratory Rate 18 16 20 Blood Pressure 172/73 H 157/67 H Pulse Oximetry 98 96 98 07/25/18 15:15 07/25/18 15:30 07/25/18 15:45 Temperature Pulse Rate 67 77 89 Respiratory Rate 18 23 47 H Blood Pressure 142/65 H 167/72 H 159/70 H Pulse Oximetry 98 97 98 07/25/18 16:00 07/25/18 16:15 07/25/18 17:00 Temperature 98.5 F Pulse Rate 81 77 80 Respiratory Rate 27 H 54 H 20 Blood Pressure 164/72 H Pulse Oximetry 97 95 97 07/25/18 17:11 07/25/18 17:59 07/25/18 18:00 Temperature 98.5 F Pulse Rate 86 78 84 Respiratory Rate 21 18 18 Blood Pressure 147/58 H 143/62 H Pulse Oximetry 98 96 07/25/18 18:11 07/25/18 19:00 Temperature 98.7 F Pulse Rate 87 85 Respiratory Rate 20 Blood Pressure 143/62 H 155/62 H Pulse Oximetry 99 98 Intake & Output 07/25/18 07/25/18 07/26/18 06:59 18:59 06:59 Intake Total 1420 / 1420 1190 / 1190 Output Total 800 / 800 Balance 620 / 620 1190 / 1190 Weight 75.1 kg Intake: IV 1000 / 1000 950 / 950 NS Inj 1,000 ML @ 100 mls/hr IV 1000 / 1000 950 / 950 .CONT .Q10H LILO Rx#:[id number] Oral 420 / 420 240 / 240 Intake (Blood Product) Amt 0 / 0 Plt Pheresis A Leukoreduced 0 / 0 Unit [id number] Output: Urine 800 / 800 Stool 0 / 0 Other: # Voids 6 Weight On Admission 75.1 kg Narrative: Ms Benjamin is alert, awake. Comfortable, in no acute distress. Speech is fluent. Cranial nerve examination: pupils to be equal, round and reactive to light. Extra-ocular movements are intact. Facial motor and sensory function are normal and symmetrical. Gross hearing appears intact. Sternocleidomastoid and trapezius muscles are symmetrical. Other cranial nerves are intact. Neck is soft and supple with a good range of motion without pain. Muscle strength is normal in all muscle groups of both upper and lower extremities. Sensory examination is intact to light touch and pin prick in both the upper and lower extremities. Deep tendon reflexes are symmetrical in both upper and lower extremities. There is a bilateral plantar flexion response. Cerebellar examination is unremarkable, without deficits. Lungs are clear Heart regular rhythm is regular rate Skin warm and dry Assessment and Plan - Plan - Problem List (1) Chronic intracranial subdural hematoma Code(s): I62.03 - Nontraumatic chronic subdural hemorrhage Status: Acute (2) Cirrhosis Code(s): K74.60 - Unspecified cirrhosis of liver Status: Acute (3) Thrombocytopenia Code(s): D69.6 - Thrombocytopenia, unspecified Status: Acute I have reviewed the clinical and radiological findings Head CT 07/24/18 14:44 CONCLUSION: 1. 1 cm fairly uniform low-density right frontoparietal subdural hygroma increased in size in comparison to 07/01/2018 CT exam which demonstrated more acute subdural blood products. There is now associated mass effect with 5 mm [id number] subfalcine shift. . Neuro: neuro checks in a serial fashion. Thrombocytopenia. Her platelet count remains very loss. I recommend platelet transfusion, with goal of a count to at least 100k fir surgery I recommend evacuation of the subdural hematoma via a izzy hole and possible craniotomy. Alexa discussed the [id number] details of the surgical procedure, its indications, alternatives, risks, and potential complications. Risks and potential complications include, but are not limited to, infection, blood loss, CSF leak, partial or complete loss of sight in one or both eyes, paresis, paralysis, permanent pain or difficulty swallowing, loss of bowel or bladder function, complications from anesthesia, blood clot, stroke, myocardial infarction, or even . The possibility of nonoperative treatment has been offered. Pulmonary: aggressive pulmonary toilette, nasotracheal suction, and breathing treatments with nebulizers. Daily PT and OT Cirrhosis. Will obtain baseline liver function studies Renal: Continue to monitor closely urine output, BUN and creatinine Endocrine: Continue to Monitor serial Acu checks and SSI as needed in detail ID continue to monitor for signs of infection Continue Protonix for stress ulcer prophylaxis Continue Jose hose and SCD's for DVT prophylaxis Further recommendations will be provided depending on the patient's clinical evaluation and follow up studies.
[2018-07-26] MEDS: Chlorhexidine Gluconate 2% 1 Pack (2 Cloths) TOPICAL SCH (04:23)
[2018-07-26 05:03] LABS: Baso % (Auto) 0.8 % (0.0-2.0); Eos # (Auto) 0.1 th/mm3 (0.0-0.4); Eos % (Auto) 2.4 % (0.0-4.0); Hematocrit 24.3 % (35.0-46.0); Hemoglobin 8.5 gm/dL (11.6-15.3); Lymph # (Auto) 1.5 th/mm3 (1.0-4.8); Lymph % (Auto) 30.1 % (9.0-44.0); Mean Corpuscular HGB Conc 34.8 % (32.0-36.0); Mean Corpuscular Hemoglobin 33.8 pg (27.0-34.0); Mean Corpuscular Volume 97.2 fL (80.0-100.0); Mean Platelet Volume 9.3 fL (7.0-11.0); Mono # (Auto) 0.5 th/mm3 (0.0-0.9); Mono % (Auto) 10.2 % (0.0-8.0); Neut # (Auto) 2.8 th/mm3 (1.8-7.7); Neut % (Auto) 56.5 % (16.0-70.0); Platelet Count 70 th/mm3 (150-450); Red Blood Count 2.51 mil/mm3 (4.00-5.30); Red Cell Distribution Width 13.9 % (11.6-17.2)
--- NOTE | 2018-07-26 06:47 | ECG ---
Date Performed: 07/24/2018 Time Performed: 21:10:10 PTAGE: 78 years EKG: Possible ectopic atrial rhythm Lateral T wave changes are nonspecific Borderline ECG NO PREVIOUS TRACING DOCTOR: Russ Guidry Interpretating Date/Time 07/26/2018 06:44:50
[2018-07-26 07:09] LABS: Platelet Morphology Normal (Normal)
--- NOTE | 2018-07-26 07:31 | P.PNCC ---
Subjective Subjective Remarks/Hospital Course: This 78-year-old woman presented to the [facility] emergency department with a worsening right-sided headache this morning. CAT scan of the head revealed a moderate size right subdural hematoma, chronic, with midline shift. She is verbal and awake but mildly confused. Her history is significant for a fall on July 01 during which she fractured her left wrist, sprained her right wrist, and developed a small subdural. She developed cirrhosis of the liver from chronic nonsteroidal anti-inflammatory use and has not had major problems with bleeding. However she does run a chronically low platelet level which is 80,000 today. Her record indicates a past history of atrial fibrillation but she was in sinus mechanism on the last admission and remains so. 07/25: Stable hemodynamics and respiratory status. Stable for subdural evacuation today. May need platelet transfusion perioperatively. 07/26: Platelet count 70,000 this morning, will transfuse additional platelets prior to surgery. No change in neurological exam. - Diagnosis (1) Chronic intracranial subdural hematoma (2) Cirrhosis (3) Thrombocytopenia Objective Vital Signs / I&O: Vital Signs 07/25/18 07:28 07/25/18 07:31 07/25/18 08:00 Temperature 98 F Pulse Rate 79 84 Respiratory Rate 24 31 H Blood Pressure Pulse Oximetry 98 98 07/25/18 08:23 07/25/18 09:00 07/25/18 10:00 Temperature Pulse Rate 69 66 79 Respiratory Rate 18 19 21 Blood Pressure 124/60 Pulse Oximetry 97 98 96 07/25/18 10:07 07/25/18 10:23 07/25/18 11:00 Temperature Pulse Rate 75 81 86 Respiratory Rate 20 23 21 Blood Pressure 137/63 126/58 L Pulse Oximetry 98 97 99 07/25/18 11:23 07/25/18 12:00 07/25/18 12:23 Temperature 98.9 F Pulse Rate 80 72 94 H Respiratory Rate 20 18 18 Blood Pressure 130/61 154/72 H Pulse Oximetry 98 97 07/25/18 14:20 07/25/18 14:25 07/25/18 14:27 Temperature 99.1 F 99.1 F Pulse Rate 82 89 85 Respiratory Rate 26 H 22 24 Blood Pressure 173/71 H 173/71 H Pulse Oximetry 97 94 L 07/25/18 14:29 07/25/18 14:30 07/25/18 14:45 Temperature Pulse Rate 83 82 81 Respiratory Rate 28 H 46 H 18 Blood Pressure 172/73 H 172/73 H Pulse Oximetry 99 99 98 07/25/18 15:00 07/25/18 15:04 07/25/18 15:15 Temperature Pulse Rate 106 H 80 67 Respiratory Rate 16 20 18 Blood Pressure 157/67 H 142/65 H Pulse Oximetry 96 98 98 07/25/18 15:30 07/25/18 15:45 07/25/18 16:00 Temperature Pulse Rate 77 89 81 Respiratory Rate 23 47 H 27 H Blood Pressure 167/72 H 159/70 H 164/72 H Pulse Oximetry 97 98 97 07/25/18 16:15 07/25/18 17:00 07/25/18 17:11 Temperature 98.5 F Pulse Rate 77 80 86 Respiratory Rate 54 H 20 21 Blood Pressure 147/58 H Pulse Oximetry 95 97 98 07/25/18 17:59 07/25/18 18:00 07/25/18 18:11 Temperature 98.5 F Pulse Rate 78 84 87 Respiratory Rate 18 18 20 Blood Pressure 143/62 H 143/62 H Pulse Oximetry 96 99 07/25/18 19:00 07/25/18 19:11 07/25/18 20:00 Temperature 98.7 F Pulse Rate 80 84 82 Respiratory Rate 35 H 23 44 H Blood Pressure 155/62 H 155/62 H Pulse Oximetry 87 L 92 L 98 07/25/18 20:11 07/25/18 21:00 07/25/18 21:11 Temperature Pulse Rate 67 81 66 Respiratory Rate 20 40 H 27 H Blood Pressure 156/70 H 147/64 H Pulse Oximetry 98 97 97 07/25/18 21:27 07/25/18 22:00 07/25/18 23:02 Temperature Pulse Rate 87 Respiratory Rate 43 H 24 24 Blood Pressure Pulse Oximetry 07/25/18 23:26 07/25/18 23:27 07/26/18 00:00 Temperature 98.7 F Pulse Rate 64 Respiratory Rate Blood Pressure 156/66 H Pulse Oximetry 96 94 L 07/26/18 01:00 07/26/18 01:39 07/26/18 02:00 Temperature Pulse Rate 73 65 69 Respiratory Rate 20 Blood Pressure 113/56 L 113/56 L 138/62 Pulse Oximetry 96 95 93 L 07/26/18 03:00 07/26/18 04:00 07/26/18 05:00 Temperature Pulse Rate 63 67 70 Respiratory Rate 15 21 8 L Blood Pressure 131/56 L 123/55 L 133/64 Pulse Oximetry 95 96 97 07/26/18 06:00 Temperature Pulse Rate 71 Respiratory Rate 22 Blood Pressure 138/60 Pulse Oximetry 92 L Intake & Output 07/25/18 07/26/18 07/26/18 18:59 06:59 18:59 Intake Total 1190 / 1190 1240 / 1240 Balance 1190 / 1190 1240 / 1240 Weight 74.7 kg Intake: IV 950 / 950 1000 / 1000 NS Inj 1,000 ML @ 100 mls/hr IV 950 / 950 1000 / 1000 .CONT .Q10H LILO Rx#:[id number] Oral 240 / 240 240 / 240 Intake (Blood Product) Amt 0 / 0 Plt Pheresis A Leukoreduced 0 / 0 Unit [id number] Other: # Voids 6 4 Date of Last Bowel Movement 07/24/18 # Bowel Movements 0 Result Diagrams: 07/26/18 04:43 07/25/18 03:35 Objective Remarks: Narrative: General: Alert, oriented to place and name. Head: Normal Neck: Supple, airway widely patent, no obstructive noises. Lungs: Clear bilaterally without wheezes or crackles. Comfortable respiratory pattern. Strong cough effort. Heart: Regular rate and rhythm, normal S1-S2, no JVD. Abdomen: Soft, nondistended, no guarding, bowel sounds remain active. Extremities: Both wrists in splints. Distal circulation intact both hands. 4 limbs warm and well perfused. Neuro: Pupils equal and reactive to light. Tracks with eyes. Moves 4 limbs to command. Speech clear. Forgetful. Assessment and Plan - Problem List (1) Chronic intracranial subdural hematoma Code(s): I62.03 - Nontraumatic chronic subdural hemorrhage Status: Acute (2) Cirrhosis Code(s): K74.60 - Unspecified cirrhosis of liver Status: Acute (3) Thrombocytopenia Code(s): D69.6 - Thrombocytopenia, unspecified Status: Acute - Assessment and Plan Plan: Assessment: 1. Chronic right-sided subdural hematoma, post traumatic 2. Chronic cirrhosis 3. Chronic thrombocytopenia 4. History of atrial fibrillation, now NSR Plan: 1. Stable for subdural decompression today. 2. Continue serial neurologic checks 3. ECG to confirm sinus mechanism, done 4. Head of bed up 30 degrees 5. Check coagulation profile, acceptable 6. Restart home medications, hold antiplatelet drugs 7. SCDs for DVT prophylaxis 8. Chemical DVT prophylaxis contraindicated 9. Pepcid for GI ulcer prophylaxis 10. Repeat head CT, enlarging subdural hematoma 11. Repeat platelet transfusion this morning urgently. Overall impression: This woman has developed a symptomatic chronic right subdural hematoma with a small midline shift approximately 3 weeks following a fall. Her care is modestly complicated by age, chronic thrombocytopenia, cirrhosis, she has seen the neurosurgeon in consultation and arrangements have been made for her to have a subdural hematoma evacuated in the morning. She is receiving additional platelets again this morning. She may benefit from receiving platelets perioperatively as well.
[2018-07-26] MEDS: Allopurinol 300 MG Tablet PO SCH (08:30)
[2018-07-26] MEDS: Famotidine 20 MG Tablet PO SCH ×2 (08:30→20:27)
[2018-07-26] MEDS: rifAXIMin 550 MG Tablet PO SCH ×2 (08:31→20:26)
[2018-07-26] MEDS: Senna/Docusate Sodium 8.6/50 MG Tablet PO SCH ×2 (08:31→20:26)
[2018-07-26] MEDS: Sod Chloride 0.9% Inj 1,000 ML IV.CONT SCH ×2 (08:32→20:24)
[2018-07-26] MEDS ORDERED: Thrombin Topical Soln 5,000 UNIT Vial TOPICAL ONE (08:41)
[2018-07-26] MEDS ORDERED: ceFAZolin 1 GM Premix Inj 2 GM/100 ML FROZ.PIGGY IV.SIG ONE (08:41)
[2018-07-26] MEDS ORDERED: Lidocaine 1%/Epinephrine 1:100,000 Inj 30 ML Vial ONE (08:41)
[2018-07-26] MEDS ORDERED: Gelatin Size 100 Topical Foam ONE (08:50)
[2018-07-26] MEDS ORDERED: *Meperidine Inj 25 MG/ML Vial PERIprocedural Use ONLY ONE (13:39)
[2018-07-26] MEDS ORDERED: fentaNYL Citrate Inj 100 MCG/2 ML Ampul ONE (13:44)
[2018-07-26] MEDS ORDERED: *morphine SULFATE 10 MG/ML PERIprocedure ONLY ONE ×2 (13:54→14:25)
[2018-07-26] MEDS ORDERED: Bisacodyl 10 MG Supp RECTAL PRN (13:55)
[2018-07-26] MEDS ORDERED: *morphine SULFATE 4 MG/ML PERIprocedure ONLY ONE (14:08)
[2018-07-26] MEDS: ceFAZolin 2 GM Premix Inj 2 GM/50 ML PIGGYBACK IV.SIG SCH (20:24)
[2018-07-26] MEDS ORDERED: Senna/Docusate Sodium 8.6/50 MG Tablet PO SCH (21:00)
--- NOTE | 2018-07-26 21:06 | P.OP ---
Preoperative Diagnosis: Right subdural hematoma Postoperative Diagnosis: Right subdural hematoma Date of procedure: 07/26/18 Procedure: Right frontal izzy hole, evacuation of subdural hematoma Surgeon: Sohail Levy MD Metal Bending Machine Operator: Shari Grove Pathology: other (Subdural hematoma) Operation and Findings: DETAILS OF THE SURGICAL PROCEDURE Following the induction of general anesthesia, endotracheal intubation was performed. A Walker catheter, bilateral ROHITH hose and sequential compression devices were placed and kept throughout the procedure. The patient was positioned supine on a 30/80 table with the head over a gel doughnut. All pressure points were carefully padded with eggcrate mattress. The DETAILS OF THE SURGICAL PROCEDURE Following the induction of general anesthesia, endotracheal intubation was performed. A Walker catheter, bilateral ROHITH hose and sequential compression devices were placed and kept throughout the procedure. The patient was positioned supine on a 30/80 table with the head over a gel doughnut. All pressure points were carefully padded with eggcrate mattress. The rigt frontoparietal region was shaved, prepped and draped in the usual sterile fashion. A linear incision was outlined on the scalp and infiltrated with 1% lidocaine with epinephrine. A skin incision was made with a #10 blade down to the level of the periosteum. Using the TPS drill a izzy hole was made. Small galea bleeders were coagulated with a bipolar. The dura was carefully coagulated with the bipolar in a cruciform fashion and opened with a 15 blade. A large subdural hematoma, which was under increased pressure was evacuated. The subdural space was entered. A specimen was sent to the lab for histological evaluation. The subdural space was irrigated with saline until clear, and the subdural drain was left in the subdural space and externalized through a separate stab incision. The incision was thoroughly irrigated with antibiotic solution. The incision was then closed in layers, 3-0 Vicryl with interrupted sutures were used to close the galea. [place] were applied to the skin and the drain secured with 3-0 nylon. At the end of the procedure, the sponge, needle and instrument counts were all correct. Estimated blood loss were less than 10 cc. No blood transfusion was given. No intraoperative complications occurred. The patient received prophylactic antibiotics. The patient was then extubated and transferred to recovery room in a stable condition.
[2018-07-27] MEDS: Sod Chloride 0.9% Inj 1,000 ML IV.CONT SCH ×3 (03:24→15:10)
[2018-07-27] MEDS: Chlorhexidine Gluconate 2% 1 Pack (2 Cloths) TOPICAL SCH (04:00)
[2018-07-27] MEDS: ceFAZolin 2 GM Premix Inj 2 GM/50 ML PIGGYBACK IV.SIG SCH ×2 (04:38→11:32)
[2018-07-27 06:51] LABS: Baso % (Auto) 0.4 % (0.0-2.0); Eos # (Auto) 0.1 th/mm3 (0.0-0.4); Eos % (Auto) 2.9 % (0.0-4.0); Hematocrit 24.2 % (35.0-46.0); Hemoglobin 8.4 gm/dL (11.6-15.3); Lymph # (Auto) 1.1 th/mm3 (1.0-4.8); Lymph % (Auto) 25.7 % (9.0-44.0); Mean Corpuscular HGB Conc 34.7 % (32.0-36.0); Mean Corpuscular Hemoglobin 34.3 pg (27.0-34.0); Mean Corpuscular Volume 98.9 fL (80.0-100.0); Mean Platelet Volume 9.1 fL (7.0-11.0); Mono # (Auto) 0.7 th/mm3 (0.0-0.9); Mono % (Auto) 14.6 % (0.0-8.0); Neut # (Auto) 2.5 th/mm3 (1.8-7.7); Neut % (Auto) 56.4 % (16.0-70.0); Platelet Count 55 th/mm3 (150-450); Red Blood Count 2.44 mil/mm3 (4.00-5.30); Red Cell Distribution Width 13.9 % (11.6-17.2); White Blood Count 4.5 th/mm3 (4.0-11.0)
[2018-07-27 07:09] LABS: Potassium 3.9 meq/L (3.5-5.1)
[2018-07-27 08:23] LABS: Platelet Morphology Normal (Normal)
[2018-07-27] MEDS: Furosemide 40 MG Tablet PO SCH (09:04)
[2018-07-27] MEDS: Allopurinol 300 MG Tablet PO SCH (09:05)
[2018-07-27] MEDS: Senna/Docusate Sodium 8.6/50 MG Tablet PO SCH ×2 (09:05→20:02)
[2018-07-27] MEDS: Spironolactone 50 MG Tablet PO SCH (09:05)
[2018-07-27] MEDS: rifAXIMin 550 MG Tablet PO SCH ×2 (09:05→20:02)
[2018-07-27] MEDS: Famotidine 20 MG Tablet PO SCH ×2 (09:05→20:02)
[2018-07-27] MEDS: Pantoprazole Inj 40 MG Vial IV.PUSH SCH (09:10)
--- NOTE | 2018-07-27 15:53 | P.PNCC ---
Subjective Subjective Remarks/Hospital Course: This 78-year-old woman presented to the [facility] emergency department with a worsening right-sided headache this morning. CAT scan of the head revealed a moderate size right subdural hematoma, chronic, with midline shift. She is verbal and awake but mildly confused. Her history is significant for a fall on July 01 during which she fractured her left wrist, sprained her right wrist, and developed a small subdural. She developed cirrhosis of the liver from chronic nonsteroidal anti-inflammatory use and has not had major problems with bleeding. However she does run a chronically low platelet level which is 80,000 today. Her record indicates a past history of atrial fibrillation but she was in sinus mechanism on the last admission and remains so. 07/25: Stable hemodynamics and respiratory status. Stable for subdural evacuation today. May need platelet transfusion perioperatively. 07/26: Platelet count 70,000 this morning, will transfuse additional platelets prior to surgery. No change in neurological exam. 07/27: Platelets 99543 this AM. Awake, alert. s/p izzy hole on 07/26. - Diagnosis (1) Chronic intracranial subdural hematoma (2) Cirrhosis (3) Thrombocytopenia Objective Vital Signs / I&O: Vital Signs 07/26/18 16:00 07/26/18 16:30 07/26/18 17:00 Temperature Pulse Rate 76 84 56 L Respiratory Rate 26 H 46 H 15 Blood Pressure 162/77 H 156/68 H 133/60 Pulse Oximetry 99 100 100 07/26/18 17:30 07/26/18 18:00 07/26/18 18:08 Temperature Pulse Rate 82 61 74 Respiratory Rate 50 H 21 47 H Blood Pressure 147/67 H 139/64 Pulse Oximetry 90 L 100 100 07/26/18 18:41 07/26/18 19:00 07/26/18 19:30 Temperature Pulse Rate 61 55 L Respiratory Rate 18 13 Blood Pressure 157/97 H 128/60 118/58 L Pulse Oximetry 100 100 07/26/18 19:39 07/26/18 20:00 07/26/18 21:00 Temperature 98 F Pulse Rate 61 70 Respiratory Rate 16 Blood Pressure 121/58 L Pulse Oximetry 100 97 07/26/18 22:00 07/26/18 23:00 07/27/18 00:00 Temperature 98 F Pulse Rate 56 L Respiratory Rate 16 16 16 Blood Pressure 140/60 Pulse Oximetry 100 07/27/18 04:00 07/27/18 07:00 07/27/18 07:43 Temperature 98.6 F 98.1 F Pulse Rate 58 L 58 L Respiratory Rate 16 13 Blood Pressure 135/63 118/58 L Pulse Oximetry 99 98 98 07/27/18 08:00 07/27/18 09:00 07/27/18 10:00 Temperature Pulse Rate 61 88 71 Respiratory Rate 11 L 44 H 13 Blood Pressure 118/60 121/59 L 120/56 L Pulse Oximetry 95 07/27/18 11:00 07/27/18 12:00 Temperature 99.4 F Pulse Rate 81 77 Respiratory Rate 22 18 Blood Pressure 134/62 125/61 Pulse Oximetry Intake & Output 07/26/18 07/27/18 07/27/18 18:59 06:59 18:59 Intake Total 5108 / 5108 330 / 330 1000 / 1000 Output Total 430 / 430 710 / 710 Balance 4678 / 4678 -380 / -380 1000 / 1000 Weight 74.8 kg Intake: IV 1999 150 / 150 1000 / 1000 NS Inj 1,000 ML @ 100 mls/hr IV 1999 50 / 50 950 / 950 .CONT .Q10H [facility] Rx#:[id number] Ancef 2 GM Premix Inj 2 gm In 100 / 100 50 / 50 50 ml @ 100 mls/hr IV.SIG Q8H [facility] Rx#:[id number] Oral 880 / 880 180 / 180 Anesthesia Amount 1800 / 1800 Intake (Blood Product) Amt 428 / 428 Plt Pheresis B Leukoreduced 227 / 227 Unit [id number] Plt Pheresis B Leukoreduced 201 / 201 Unit [id number] Output: Urine 200 / 200 Emesis 100 / 100 Estimated Blood Loss 20 / 20 Urine Amount (Catheter) 200 / 200 600 / 600 Indwelling Urethral Catheter 200 / 200 Straight 600 / 600 Wound Drainage # 1 Right Head MANDI Drain Other: # Voids 2 1 1 Date of Last Bowel Movement 07/24/18 07/24/18 # Emeses 2 Result Diagrams: 07/27/18 06:16 07/27/18 06:16 Objective Remarks: Narrative: General: Alert, oriented to place and name. Head: Normal. Dressing over burrhole site. Drain in place Neck: Supple, airway widely patent, no obstructive noises. Lungs: Clear bilaterally without wheezes or crackles. Comfortable respiratory pattern. Strong cough effort. Heart: Regular rate and rhythm, normal S1-S2, no JVD. Abdomen: Soft, nondistended, no guarding, bowel sounds remain active. Extremities: Both wrists in splints. Distal circulation intact both hands. 4 limbs warm and well perfused. Neuro: Pupils equal and reactive to light. Tracks with eyes. Moves 4 limbs to command. Speech clear. Forgetful. Assessment and Plan - Problem List (1) Chronic intracranial subdural hematoma Code(s): I62.03 - Nontraumatic chronic subdural hemorrhage Status: Acute (2) Cirrhosis Code(s): K74.60 - Unspecified cirrhosis of liver Status: Acute (3) Thrombocytopenia Code(s): D69.6 - Thrombocytopenia, unspecified Status: Acute - Assessment and Plan Plan: Assessment: 1. Chronic right-sided subdural hematoma, post traumatic s/p izzy hole 07/26 2. Chronic cirrhosis 3. Chronic thrombocytopenia 4. History of atrial fibrillation, now NSR Plan: 1. s/p burrhole for SDH evacuation 07/26 2. Continue serial neurologic checks 3. ECG to confirm sinus mechanism, done 4. Head of bed up 30 degrees 5. Check coagulation profile, acceptable 6. Restart home medications, hold antiplatelet drugs 7. SCDs for DVT prophylaxis 8. Chemical DVT prophylaxis contraindicated 9. Pepcid for GI ulcer prophylaxis 10. Repeat head CT, enlarging subdural hematoma 11. Repeat platelet transfusion 07/27 Overall impression: This woman has developed a symptomatic chronic right subdural hematoma with a small midline shift approximately 3 weeks following a fall. Her care is modestly complicated by age, chronic thrombocytopenia, cirrhosis, she has seen the neurosurgeon in consultation and underwent subdural hematoma evacuation 07/26. Ordered platelets on 07/27. Transfer to hospitalist service on 07/28 for medical management.
[2018-07-27] MEDS ORDERED: Sodium Chlor 0.9% Inj 250 ML IV.SIG SCH (16:00)
--- NOTE | 2018-07-27 17:16 | P.PNNS ---
Subjective Interval history: doing well,reports had some urine retention last night Physical Exam Vital signs: Vital Signs 07/26/18 17:30 07/26/18 18:00 07/26/18 18:08 Temperature Pulse Rate 82 61 74 Respiratory Rate 50 H 21 47 H Blood Pressure 147/67 H 139/64 Pulse Oximetry 90 L 100 100 07/26/18 18:41 07/26/18 19:00 07/26/18 19:30 Temperature Pulse Rate 61 55 L Respiratory Rate 18 13 Blood Pressure 157/97 H 128/60 118/58 L Pulse Oximetry 100 100 07/26/18 19:39 07/26/18 20:00 07/26/18 21:00 Temperature 98 F Pulse Rate 61 70 Respiratory Rate 16 Blood Pressure 121/58 L Pulse Oximetry 100 97 07/26/18 22:00 07/26/18 23:00 07/27/18 00:00 Temperature 98 F Pulse Rate 56 L Respiratory Rate 16 16 16 Blood Pressure 140/60 Pulse Oximetry 100 07/27/18 04:00 07/27/18 07:00 07/27/18 07:43 Temperature 98.6 F 98.1 F Pulse Rate 58 L 58 L Respiratory Rate 16 13 Blood Pressure 135/63 118/58 L Pulse Oximetry 99 98 98 07/27/18 08:00 07/27/18 09:00 07/27/18 10:00 Temperature Pulse Rate 61 88 71 Respiratory Rate 11 L 44 H 13 Blood Pressure 118/60 121/59 L 120/56 L Pulse Oximetry 95 07/27/18 11:00 07/27/18 12:00 Temperature 99.4 F Pulse Rate 81 77 Respiratory Rate 22 18 Blood Pressure 134/62 125/61 Pulse Oximetry Intake & Output 07/26/18 07/27/18 07/27/18 18:59 06:59 18:59 Intake Total 5108 / 5108 330 / 330 1000 / 1000 Output Total 430 / 430 710 / 710 Balance 4678 / 4678 -380 / -380 1000 / 1000 Weight 74.8 kg Intake: IV 1999 150 / 150 1000 / 1000 NS Inj 1,000 ML @ 100 mls/hr IV 1999 50 / 50 950 / 950 .CONT .Q10H [facility] Rx#:[id number] Ancef 2 GM Premix Inj 2 gm In 100 / 100 50 / 50 50 ml @ 100 mls/hr IV.SIG Q8H [facility] Rx#:[id number] Oral 880 / 880 180 / 180 Anesthesia Amount 1800 / 1800 Intake (Blood Product) Amt 428 / 428 Plt Pheresis B Leukoreduced 227 / 227 Unit [id number] Plt Pheresis B Leukoreduced 201 / 201 Unit [id number] Output: Urine 200 / 200 Emesis 100 / 100 Estimated Blood Loss 20 / 20 Urine Amount (Catheter) 200 / 200 600 / 600 Indwelling Urethral Catheter 200 / 200 Straight 600 / 600 Wound Drainage # 1 Right Head MANDI Drain Other: # Voids 2 1 1 Date of Last Bowel Movement 07/24/18 07/24/18 # Emeses 2 Narrative: Awake, alert NAD right MANDI drain in place wound clean and dry moves x 4 extremities well - Urinary Catheter Management Indwelling Urethral Catheter Cath placed during this visit: yes, but has since been removed by the nurse Reason for continuing: Hourly intake/output Insertion date: 07/26/18 Insertion time: 12:00 Removal date: 07/26/18 Removal time: 13:20 Straight Cath placed during this visit: no Assessment and Plan - Plan s/p right frontal izzy hole evac of SDH cont MANDI draining f/u CT Brain tomorrow morning PT, mobilize
--- NOTE | 2018-07-28 04:18 | CT ---
EXAM DATE: 07/28/2018 4:10 AM EST AGE/SEX: 78 years / Female INDICATIONS: Subdural hemorrhage. Post operative. CLINICAL DATA: This is the patient's initial encounter. Patient reports that signs and symptoms have been present for 1 day and indicates a pain score of Nonresponsive. MEDICAL/SURGICAL HISTORY: . AFIB Craniotomy. RADIATION DOSE: 39.93 CTDI (mGy) [place] [facility] [place]24/[place]. . TECHNIQUE: CT of the head without contrast. Using automated exposure control and adjustment of the mA and/or kV according to patient size, radiation dose was kept as low as reasonably achievable to ob tain optimal diagnostic quality images. DICOM format image data is available electronically for revi ew and comparison. FINDINGS: There is interval placement of a right-sided drain from the frontal approach. Slight decrease in size of previous right subdural fluid collection. No significant change in mild mass effect. No new areas of hemorrhage. CONCLUSION: 1. Placement of right subdural drain with slight decrease in size of right subdural fluid collection . Relatively stable right to left shift. . Electronically signed by: Wes Ho MD 07/28/2018 4:16 AM EST
[2018-07-28] MEDS: Chlorhexidine Gluconate 2% 1 Pack (2 Cloths) TOPICAL SCH (04:29)
[2018-07-28 06:17] LABS: Baso % (Auto) 0.4 % (0.0-2.0); Eos # (Auto) 0.2 th/mm3 (0.0-0.4); Eos % (Auto) 3.3 % (0.0-4.0); Hematocrit 22.6 % (35.0-46.0); Hemoglobin 7.8 gm/dL (11.6-15.3); Lymph # (Auto) 1.2 th/mm3 (1.0-4.8); Lymph % (Auto) 23.6 % (9.0-44.0); Mean Corpuscular HGB Conc 34.4 % (32.0-36.0); Mean Corpuscular Hemoglobin 33.7 pg (27.0-34.0); Mean Platelet Volume 9.7 fL (7.0-11.0); Mono # (Auto) 0.6 th/mm3 (0.0-0.9); Mono % (Auto) 11.6 % (0.0-8.0); Neut # (Auto) 3.1 th/mm3 (1.8-7.7); Neut % (Auto) 61.1 % (16.0-70.0); Platelet Count 52 th/mm3 (150-450); Red Blood Count 2.31 mil/mm3 (4.00-5.30); Red Cell Distribution Width 14.1 % (11.6-17.2); White Blood Count 5.1 th/mm3 (4.0-11.0)
[2018-07-28 06:45] LABS: Carbon Dioxide 26.2 meq/L (21.0-32.0); Potassium 3.6 meq/L (3.5-5.1)
[2018-07-28 07:58] LABS: Platelet Morphology Normal (Normal)
[2018-07-28] MEDS: Famotidine 20 MG Tablet PO SCH ×2 (09:05→20:05)
[2018-07-28] MEDS: Senna/Docusate Sodium 8.6/50 MG Tablet PO SCH ×2 (09:05→20:05)
[2018-07-28] MEDS: Pantoprazole Inj 40 MG Vial IV.PUSH SCH (09:05)
[2018-07-28] MEDS: rifAXIMin 550 MG Tablet PO SCH ×2 (09:06→20:05)
[2018-07-28] MEDS: Allopurinol 300 MG Tablet PO SCH (09:06)
--- NOTE | 2018-07-28 10:33 | P.PNNS ---
Subjective Interval history: f/u CT Brain completed this morning, reports head pressure better Physical Exam Vital signs: Vital Signs 07/27/18 11:00 07/27/18 12:00 07/27/18 13:00 Temperature 99.4 F 99.1 F Pulse Rate 81 77 60 Respiratory Rate 22 18 19 Blood Pressure 134/62 125/61 147/65 H Pulse Oximetry 07/27/18 14:27 07/27/18 15:00 07/27/18 15:57 Temperature 99.1 F Pulse Rate 65 63 68 Respiratory Rate 41 H 20 29 H Blood Pressure 135/63 120/58 L 139/61 Pulse Oximetry 07/27/18 17:00 07/27/18 19:00 07/27/18 20:00 Temperature Pulse Rate 63 79 63 Respiratory Rate 17 24 18 Blood Pressure 132/58 L 126/60 Pulse Oximetry 07/27/18 21:00 07/27/18 22:01 07/27/18 22:47 Temperature 98.7 F 98.7 F Pulse Rate 62 65 62 Respiratory Rate 17 14 16 Blood Pressure 109/51 L 108/49 L 108/48 L Pulse Oximetry 98 07/27/18 23:01 07/28/18 00:00 07/28/18 00:01 Temperature Pulse Rate 60 60 Respiratory Rate 11 L 15 Blood Pressure 123/56 L 117/71 117/71 Pulse Oximetry 07/28/18 02:03 07/28/18 03:00 07/28/18 04:00 Temperature 98.8 F Pulse Rate 80 56 L 72 Respiratory Rate 32 H 16 24 Blood Pressure 158/68 H 110/55 L 166/67 H Pulse Oximetry Intake & Output 07/27/18 07/28/18 07/28/18 18:59 06:59 18:59 Intake Total 1300 / 1300 446 / 446 Output Total 10 / 10 Balance 1300 / 1300 436 / 436 Weight 75 kg Intake: IV 1300 / 1300 NS Inj 1,000 ML @ 100 mls/hr IV 1250 / 1250 .CONT .Q10H [facility] Rx#:[id number] Ancef 2 GM Premix Inj 2 gm In 50 / 50 50 ml @ 100 mls/hr IV.SIG Q8H [facility] Rx#:[id number] Oral 180 / 180 Intake (Blood Product) Amt 266 / 266 Plt Pheresis A Leukored Pas 266 / 266 Unit [id number] Output: Wound Drainage MANDI Drain Other: # Voids 1 6 Date of Last Bowel Movement 07/24/18 07/24/18 Narrative: Awake, alert NAD right MANDI drain in place wound clean and dry moves x 4 extremities well - Urinary Catheter Management Indwelling Urethral Catheter Cath placed during this visit: yes, but has since been removed by the nurse Reason for continuing: Hourly intake/output Insertion date: 07/26/18 Insertion time: 12:00 Removal date: 07/26/18 Removal time: 13:20 Straight Cath placed during this visit: no Assessment and Plan - Plan s/p right frontal izzy hole evac of SDH f/u CT Brain reviewed only slight improvement of SDH, pt however reports improved head pressure cont MANDI draining PT, mobilize
--- NOTE | 2018-07-28 19:52 | P.PNIM ---
Subjective Interval history: Patient seen this afternoon around 4 PM. Says she is feeling all right. Denies any chest pain or shortness of breath. Reports pain is under control. Denies any nausea or vomiting. She does report some constipation. No bowel movement in the past couple days. Is requesting a laxative. Physical Exam Vital signs: Vital Signs 07/27/18 20:00 07/27/18 21:00 07/27/18 22:01 Temperature 98.7 F Pulse Rate 63 62 65 Respiratory Rate 18 17 14 Blood Pressure 126/60 109/51 L 108/49 L Pulse Oximetry 07/27/18 22:47 07/27/18 23:01 07/28/18 00:00 Temperature 98.7 F Pulse Rate 62 60 60 Respiratory Rate 16 11 L 15 Blood Pressure 108/48 L 123/56 L 117/71 Pulse Oximetry 98 07/28/18 00:01 07/28/18 02:03 07/28/18 03:00 Temperature Pulse Rate 80 56 L Respiratory Rate 32 H 16 Blood Pressure 117/71 158/68 H 110/55 L Pulse Oximetry 07/28/18 04:00 07/28/18 08:00 07/28/18 09:00 Temperature 98.8 F 98.7 F Pulse Rate 72 63 65 Respiratory Rate 24 35 H 17 Blood Pressure 166/67 H 135/60 132/60 Pulse Oximetry 95 07/28/18 10:00 07/28/18 11:00 07/28/18 12:00 Temperature 98.7 F Pulse Rate 68 63 65 Respiratory Rate 36 H 9 L 19 Blood Pressure 142/65 H 120/55 L 144/67 H Pulse Oximetry 07/28/18 12:01 07/28/18 13:00 07/28/18 14:05 Temperature Pulse Rate 67 59 L 81 Respiratory Rate 29 H 20 34 H Blood Pressure 126/60 191/74 H Pulse Oximetry 07/28/18 15:00 07/28/18 16:00 07/28/18 17:00 Temperature 98.5 F Pulse Rate 59 L 67 74 Respiratory Rate 16 23 36 H Blood Pressure 130/58 L 139/62 128/60 Pulse Oximetry Intake & Output 07/28/18 07/28/18 07/29/18 06:59 18:59 06:59 Intake Total 446 / 446 960 / 960 Output Total Balance 436 / 436 950 / 950 Weight 75 kg Intake: Oral 180 / 180 960 / 960 Intake (Blood Product) Amt 266 / 266 Plt Pheresis A Leukored Pas 266 / 266 Unit [id number] Output: Wound Drainage # 1 Right Head MANDI Drain Other: # Voids 6 6 Date of Last Bowel Movement 07/24/18 07/27/18 - Urinary Catheter Management Indwelling Urethral Catheter Cath placed during this visit: yes, but has since been removed by the nurse Reason for continuing: Hourly intake/output Insertion date: 07/26/18 Insertion time: 12:00 Removal date: 07/26/18 Removal time: 13:20 Straight Cath placed during this visit: no Results - Labs CBC & Chem 7: 07/28/18 05:42 07/28/18 05:42 Laboratory Results - last 24 hr 07/26/18 07/27/18 07/28/18 10:53 17:29 05:42 WBC 5.1 RBC 2.31 L Hgb 7.8 L Hct 22.6 L MCV 98.0 MCH 33.7 MCHC 34.4 RDW 14.1 Plt Count 52 L MPV 9.7 Prelim Diff (Auto) Slide review pending Neut % (Auto) 61.1 Lymph % (Auto) 23.6 Winston % (Auto) 11.6 H Eos % (Auto) 3.3 Baso % (Auto) 0.4 Neut # (Auto) 3.1 Lymph # (Auto) 1.2 Winston # (Auto) 0.6 Eos # (Auto) 0.2 Baso # (Auto) 0.0 WBC Differential . Diff Scan Auto diff confirmed Differential Comment . Platelet Estimate Low L Platelet Morphology Normal Sodium Potassium Chloride Carbon Dioxide Anion Gap BUN Creatinine Estimated GFR Random Glucose Calcium MTS Gel Crossmatch See Detail Bld Prod Order Comment 07/28/18 05:42 WBC RBC Hgb Hct MCV MCH MCHC RDW Plt Count MPV Prelim Diff (Auto) Neut % (Auto) Lymph % (Auto) Winston % (Auto) Eos % (Auto) Baso % (Auto) Neut # (Auto) Lymph # (Auto) Winston # (Auto) Eos # (Auto) Baso # (Auto) WBC Differential Diff Scan Differential Comment Platelet Estimate Platelet Morphology Sodium 136 Potassium 3.6 Chloride 105 Carbon Dioxide 26.2 Anion Gap 5 BUN 11 Creatinine 0.98 Estimated GFR 55 L Random Glucose 95 Calcium 8.0 L MTS Gel Crossmatch Bld Prod Order Comment - Imaging Impressions Head CT 07/28/18 06:00 CONCLUSION: 1. Placement of right subdural drain with slight decrease in size of right subdural fluid collection. Relatively stable right to left shift. . Assessment and Plan - Plan //Chronic right-sided subdural hematoma, //post traumatic s/p izzy hole 07/26 -developed a symptomatic chronic right subdural hematoma with a small midline shift approximately 3 weeks following a fall. -Perioperative management, subdural drain management as per neurosurgery. Appreciate assistance. //Chronic thrombocytopenia -Platelets 52. Patient received platelet transfusion, 5 units during this hospitalization which does not seem to be making a difference in her platelets, fortunately that she does not seem to be bleeding acutely.. We'll consult hematology. Appreciate assistance. //History of atrial fibrillation, now NSR -Avoid anticoagulation due to subdural hematoma, as well as pharmacy. //Chronic cirrhosis -INR within normal limits. No signs of hepatic encephalopathy. LFTs within normal limits. //Constipation. Mild. Laxatives ordered. Monitor. //DVT prophylaxis. SCDs. Avoid and cognition in the setting of Darvocet aphemia and subdural hematoma. Discussed Condition With: patient, nurse Discharge Planning: PT recommends home. We'll need neurosurgical clearance, drain removal prior to discharge
--- NOTE | 2018-07-28 22:01 | MB ---
cc: Michela Saravia MD DATE: 07/28/2018 CHIEF COMPLAINT: 1. Thrombocytopenia. 2. Anemia. HISTORY OF PRESENT ILLNESS: The patient is an 78-year-old lady with a history of liver cirrhosis who was admitted to the hospital on 07/24/2018 with progressively worsening headache and CT scan revealed a moderate sized right subdural hematoma, chronic, with midline shift. She was acutely confused. She is status post right frontal izzy hole and evacuation of the subdural hematoma by Dr. Levy on 07/26/2018. During the course of her hospital stay, she has been transfused 5 units of platelets with no sustained response to these platelets. PAST MEDICAL HISTORY: 1. Atrial fibrillation. 2. Liver cirrhosis. 3. Chronic thrombocytopenia. REVIEW OF SYSTEMS: As above in the HPI, all others negative. PAST SURGICAL HISTORY: Knee surgery. SOCIAL HISTORY: Denies tobacco, alcohol or illegal drug use. FAMILY HISTORY: No known family history of low blood counts. HOSPITAL MEDICATIONS: Include: 1. DuoNeb. 2. Allopurinol. 3. Famotidine. 4. Lasix. 5. Levothyroxine. 6. Reglan. 7. Protonix. 8. MiraLAX. 9. Propranolol. 10. Rifaximin. 11. Aldactone. 12. Tramadol. LABORATORY STUDIES: White blood cell count 5.1, hemoglobin 7.8, platelet count 52,000. INR 1.1, PTT 33.8, PT 10.8. Creatinine 0.98, total bilirubin 0.8, AST 18, ALT 16, alkaline phosphatase 98. PHYSICAL EXAMINATION: GENERAL: Well-developed, well-nourished lady in no distress. HEAD: Normocephalic, atraumatic. With right-sided tube that is draining. EYES: No scleral icterus. NECK: Supple. CARDIOVASCULAR: Regular rate and rhythm. No murmurs. LUNGS: Clear to auscultation bilaterally. ABDOMEN: Soft, nontender, nondistended. Bowel sounds present. EXTREMITIES: No edema. NEUROLOGIC: Grossly nonfocal. PSYCHIATRIC: Appropriate mood and affect. ASSESSMENT AND PLAN: Thrombocytopenia. The patient reports that this is chronic. 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 Her platelet counts were low on admission and has had no significant change. Unlikely to be due to heparin-induced thrombocytopenia and she is currently not on any heparin products and has not been exposed due to her known subdural. Low likelihood of antiphospholipid antibody syndrome. We will check fibrinogen but unlikely to be disseminated intravascular coagulopathy. We will check a peripheral blood smear. We will also check vitamin B12, folate, HIV and hepatitis viruses. We will check an ultrasound of the abdomen to evaluate liver and spleen. Inpatient oncology service will continue to follow. MD BRISA Durand/audrey , 08:23 PM , 08:30 PM [email or web address]
[2018-07-28 22:26] LABS: % Iron Saturation 10.6 % (20-50); Iron 25 mcg/dL (50-170); Total Iron Binding Capacity 237 mcg/dL (250-450)
[2018-07-28 22:51] LABS: Ferritin 89 ng/mL (8-252); Lactate Dehydrogenase 172 U/L (84-246); Vitamin B12 646 pg/mL (193-986)
[2018-07-28 22:53] LABS: Hepatitits B Surface Antigen Nonreactive (Nonreactive)
[2018-07-28 22:59] LABS: Hepatitis B Surface Antibody 10.65 mIU/mL
[2018-07-28 23:16] LABS: Haptoglobin 125 mg/dL (30-200)
[2018-07-29] MEDS ORDERED: hydrALAZINE HCl Inj 20 MG/ML Vial IV.PUSH ONE (05:00)
[2018-07-29 05:59] LABS: Baso % (Auto) 0.6 % (0.0-2.0); Eos # (Auto) 0.2 th/mm3 (0.0-0.4); Eos % (Auto) 4.7 % (0.0-4.0); Hematocrit 23.5 % (35.0-46.0); Hemoglobin 8.3 gm/dL (11.6-15.3); Lymph # (Auto) 1.6 th/mm3 (1.0-4.8); Lymph % (Auto) 29.8 % (9.0-44.0); Mean Corpuscular HGB Conc 35.1 % (32.0-36.0); Mean Corpuscular Hemoglobin 33.9 pg (27.0-34.0); Mean Corpuscular Volume 96.5 fL (80.0-100.0); Mean Platelet Volume 8.9 fL (7.0-11.0); Mono # (Auto) 0.6 th/mm3 (0.0-0.9); Mono % (Auto) 12.4 % (0.0-8.0); Neut # (Auto) 2.8 th/mm3 (1.8-7.7); Neut % (Auto) 52.5 % (16.0-70.0); Platelet Count 68 th/mm3 (150-450); Red Blood Count 2.44 mil/mm3 (4.00-5.30); Red Cell Distribution Width 14.1 % (11.6-17.2); White Blood Count 5.2 th/mm3 (4.0-11.0)
[2018-07-29 06:24] LABS: Calcium 8.4 mg/dL (8.5-10.1); Carbon Dioxide 29.5 meq/L (21.0-32.0)
[2018-07-29] MEDS: Chlorhexidine Gluconate 2% 1 Pack (2 Cloths) TOPICAL SCH (06:43)
[2018-07-29 07:14] LABS: Platelet Morphology Normal (Normal)
[2018-07-29] MEDS: Pantoprazole Inj 40 MG Vial IV.PUSH SCH (09:05)
[2018-07-29] MEDS: Allopurinol 300 MG Tablet PO SCH (09:06)
[2018-07-29] MEDS: Spironolactone 50 MG Tablet PO SCH (09:06)
[2018-07-29] MEDS: Furosemide 40 MG Tablet PO SCH (09:07)
[2018-07-29] MEDS: Senna/Docusate Sodium 8.6/50 MG Tablet PO SCH ×2 (09:07→20:07)
[2018-07-29] MEDS: rifAXIMin 550 MG Tablet PO SCH ×2 (09:07→20:07)
[2018-07-29] MEDS: Famotidine 20 MG Tablet PO SCH ×2 (09:07→20:07)
--- NOTE | 2018-07-29 09:13 | P.PNIM ---
Subjective Interval history: Patient says she is feeling all right. She denies any chest pain or shortness of breath. Denies nausea or vomiting. Still no bowel movement. Denies any abdominal pain. Reports headache continues stable. Physical Exam Vital signs: Vital Signs 07/28/18 10:00 07/28/18 11:00 07/28/18 12:00 Temperature 98.7 F Pulse Rate 68 63 65 Respiratory Rate 36 H 9 L 19 Blood Pressure 142/65 H 120/55 L 144/67 H Pulse Oximetry 07/28/18 12:01 07/28/18 13:00 07/28/18 14:05 Temperature Pulse Rate 67 59 L 81 Respiratory Rate 29 H 20 34 H Blood Pressure 126/60 191/74 H Pulse Oximetry 07/28/18 15:00 07/28/18 16:00 07/28/18 17:00 Temperature 98.5 F Pulse Rate 59 L 67 74 Respiratory Rate 16 23 36 H Blood Pressure 130/58 L 139/62 128/60 Pulse Oximetry 07/28/18 19:00 07/28/18 20:00 07/28/18 21:00 Temperature Pulse Rate 85 77 64 Respiratory Rate 28 H 18 15 Blood Pressure 187/75 H 144/66 H 146/69 H Pulse Oximetry 98 07/28/18 22:01 07/28/18 23:00 07/29/18 00:00 Temperature Pulse Rate 78 65 60 Respiratory Rate 24 18 15 Blood Pressure 152/68 H 150/63 H 149/65 H Pulse Oximetry 07/29/18 01:00 07/29/18 02:00 07/29/18 02:01 Temperature Pulse Rate 68 61 Respiratory Rate 17 15 Blood Pressure 163/67 H 168/70 H 134/64 Pulse Oximetry 07/29/18 03:00 07/29/18 04:00 Temperature Pulse Rate 63 65 Respiratory Rate 16 17 Blood Pressure 170/70 H 176/74 H Pulse Oximetry Intake & Output 07/28/18 07/29/18 07/29/18 18:59 06:59 18:59 Intake Total 960 / 960 50 / 50 Output Total Balance 950 / 950 50 / 50 Weight 76 kg Intake: Oral 960 / 960 50 / 50 Output: Wound Drainage # 1 Right Head Other: # Voids 6 6 Date of Last Bowel Movement 07/27/18 07/27/18 Narrative: GENERAL: Patient lying in bed. Appears comfortable. SKIN: Warm and dry. HEAD: Normocephalic. drain in place with serosanguineous fluid. EYES: No scleral icterus. No injection or drainage. NECK: Supple, trachea midline. No JVD CARDIOVASCULAR: Regular rate and rhythm without murmurs, gallops, or rubs. RESPIRATORY: Breath sounds equal bilaterally. No accessory muscle use. GASTROINTESTINAL: Abdomen soft, non-tender, nondistended. MUSCULOSKELETAL: No cyanosis, or edema. BACK: Nontender without obvious deformity. No CVA tenderness. - Urinary Catheter Management Indwelling Urethral Catheter Cath placed during this visit: yes, but has since been removed by the nurse Reason for continuing: Hourly intake/output Insertion date: 07/26/18 Insertion time: 12:00 Removal date: 07/26/18 Removal time: 13:20 Straight Cath placed during this visit: no Results - Labs CBC & Chem 7: 07/29/18 05:29 07/29/18 05:29 Laboratory Results - last 24 hr 07/28/18 07/28/18 07/28/18 21:21 21:21 21:21 WBC RBC Hgb Hct MCV MCH MCHC RDW Plt Count MPV Prelim Diff (Auto) Neut % (Auto) Lymph % (Auto) [place] % (Auto) Eos % (Auto) Baso % (Auto) Neut # (Auto) Lymph # (Auto) [place] # (Auto) Eos # (Auto) Baso # (Auto) WBC Differential Diff Scan Differential Comment Platelet Estimate Platelet Morphology Smear Path Review Haptoglobin 125 Fibrinogen 316 Sodium Potassium Chloride Carbon Dioxide Anion Gap BUN Creatinine Estimated GFR Random Glucose Calcium Iron 25 L TIBC 237 L % Saturation 10.6 L Ferritin 89 Lactate Dehydrogenase 172 Vitamin B12 646 Folate Greater than 20.0 H Hep Bs Antigen Hep Bs Antibody Hepatitis C Antibody HIV 1&2 Ab/P24 Ag 4thGn 07/28/18 07/28/18 07/29/18 21:21 21:21 05:29 WBC 5.2 RBC 2.44 L Hgb 8.3 L Hct 23.5 L MCV 96.5 MCH 33.9 MCHC 35.1 RDW 14.1 Plt Count 68 L D MPV 8.9 Prelim Diff (Auto) Slide review pending Neut % (Auto) 52.5 Lymph % (Auto) 29.8 [place] % (Auto) 12.4 H Eos % (Auto) 4.7 H Baso % (Auto) 0.6 Neut # (Auto) 2.8 Lymph # (Auto) 1.6 [place] # (Auto) 0.6 Eos # (Auto) 0.2 Baso # (Auto) 0.0 WBC Differential . Diff Scan Auto diff confirmed Differential Comment . Platelet Estimate Low L Platelet Morphology Normal Smear Path Review Haptoglobin Fibrinogen Sodium Potassium Chloride Carbon Dioxide Anion Gap BUN Creatinine Estimated GFR Random Glucose Calcium Iron TIBC % Saturation Ferritin Lactate Dehydrogenase Vitamin B12 Folate Hep Bs Antigen Nonreactive Hep Bs Antibody 10.65 Hepatitis C Antibody Nonreactive HIV 1&2 Ab/P24 Ag 4thGn Nonreactive 07/29/18 05:29 WBC RBC Hgb Hct MCV MCH MCHC RDW Plt Count MPV Prelim Diff (Auto) Neut % (Auto) Lymph % (Auto) [place] % (Auto) Eos % (Auto) Baso % (Auto) Neut # (Auto) Lymph # (Auto) [place] # (Auto) Eos # (Auto) Baso # (Auto) WBC Differential Diff Scan Differential Comment Platelet Estimate Platelet Morphology Smear Path Review Haptoglobin Fibrinogen Sodium 136 Potassium 4.0 Chloride 103 Carbon Dioxide 29.5 Anion Gap 4 L BUN 9 Creatinine 0.99 Estimated GFR 54 L Random Glucose 91 Calcium 8.4 L Iron TIBC % Saturation Ferritin Lactate Dehydrogenase Vitamin B12 Folate Hep Bs Antigen Hep Bs Antibody Hepatitis C Antibody HIV 1&2 Ab/P24 Ag 4thGn Assessment and Plan - Plan //Chronic right-sided subdural hematoma, //post traumatic s/p izzy hole 07/26 -developed a symptomatic chronic right subdural hematoma with a small midline shift approximately 3 weeks following a fall. -07/29. Continue perioperative management, subdural drain management as per neurosurgery. Appreciate assistance. //Chronic thrombocytopenia -Platelets 52. Patient received platelet transfusion, 5 units during this hospitalization which does not seem to be making a difference in her platelets, fortunately that she does not seem to be bleeding acutely.. We'll consult hematology. Appreciate assistance. = Hematology following. Appreciate assistance. Hemoglobin and platelets stable. Platelets 68, improved from yesterday. Appreciate hematology assistance. Follow-up liver ultrasound results. //History of atrial fibrillation, now NSR -Avoid anticoagulation due to subdural hematoma, as well as thrombocytopenia. //Chronic cirrhosis -INR within normal limits. No signs of hepatic encephalopathy. Limits. LFTs within normal limits. //Constipation. Mild. = 07/29 laxatives ordered again. Monitor. //DVT prophylaxis. SCDs. Avoid and cognition in the setting of Darvocet aphemia and subdural hematoma. Discharge Planning: PT recommends home. We'll need neurosurgical clearance, drain removal prior to discharge
[2018-07-29] MEDS ORDERED: Senna/Docusate Sodium 8.6/50 MG Tablet PO ONE (10:00)
--- NOTE | 2018-07-29 10:04 | US ---
EXAM DATE: 07/29/2018 9:45 AM EST AGE/SEX: 78 years / Female INDICATIONS: Thrombocytopenia. CLINICAL DATA: This is the patient's initial encounter. Patient reports that signs and symptoms have been present for 1 day and indicates a pain score of 0/10. MEDICAL/SURGICAL HISTORY: . Atrial fibrillation. Cirrhosis. . Total knee replacement. COMPARISON: No prior exams available for comparison. MEASUREMENTS: Liver:__ 12.5 cm. Common Bile Duct:__ 4mm. Right Kidney:__ 8.3 x 4.4 x 3.8 cm. FINDINGS: Liver: The liver is diffusely heterogeneous with coarsened echotexture. There does appear to be a nod ular liver margin. There are questionable ill-defined hypoechoic areas in the liver reason the possib ility of masses. Portal Vein: Hepatopedal flow seen in portal vein. Common Duct: No intraluminal mass or stone visualized. Gallbladder: Small gallstones are seen within the gallbladder neck. There is gallbladder sludge pres ent. The gallbladder wall is not thickened. Pancreas: Not well visualized. It is obscured by overlying bowel gas. Right Kidney: Increased echotexture. No hydronephrosis. There is a 1 cm cyst seen at the upper pole. Other: None. CONCLUSION: 1. Diffusely abnormal appearance the liver likely from cirrhosis. The patient also has some hypoecho ic areas which potentially represent masses. Further evaluation with contrast-enhanced CT would be re commended. 2. Gallstones 3. Echogenic kidney typically seen with medical renal disease. No hydronephrosis is seen. Electronically signed by: Monroe Swartz MD 07/29/2018 10:02 AM EST
--- NOTE | 2018-07-29 13:24 | P.PNNS ---
Subjective Interval history: reports of headaches today, had anxiety attack this morning which she says never happened before. had 5 cc output overnight from MANDI drain. Physical Exam Vital signs: Vital Signs 07/28/18 14:05 07/28/18 15:00 07/28/18 16:00 Temperature 98.5 F Pulse Rate 81 59 L 67 Respiratory Rate 34 H 16 23 Blood Pressure 191/74 H 130/58 L 139/62 Pulse Oximetry 07/28/18 17:00 07/28/18 19:00 07/28/18 20:00 Temperature Pulse Rate 74 85 77 Respiratory Rate 36 H 28 H 18 Blood Pressure 128/60 187/75 H 144/66 H Pulse Oximetry 98 07/28/18 21:00 07/28/18 22:01 07/28/18 23:00 Temperature Pulse Rate 64 78 65 Respiratory Rate 15 24 18 Blood Pressure 146/69 H 152/68 H 150/63 H Pulse Oximetry 07/29/18 00:00 07/29/18 01:00 07/29/18 02:00 Temperature Pulse Rate 60 68 61 Respiratory Rate 15 17 15 Blood Pressure 149/65 H 163/67 H 168/70 H Pulse Oximetry 07/29/18 02:01 07/29/18 03:00 07/29/18 04:00 Temperature Pulse Rate 63 65 Respiratory Rate 16 17 Blood Pressure 134/64 170/70 H 176/74 H Pulse Oximetry 07/29/18 08:00 Temperature 97.9 F Pulse Rate 66 Respiratory Rate 10 L Blood Pressure 132/60 Pulse Oximetry 96 Intake & Output 07/28/18 07/29/18 07/29/18 18:59 06:59 18:59 Intake Total 960 / 960 50 / 50 Output Total Balance 950 / 950 50 / 50 Weight 76 kg Intake: Oral 960 / 960 50 / 50 Output: Wound Drainage # 1 Right Head Other: # Voids 6 6 Date of Last Bowel Movement 07/27/18 07/27/18 07/27/18 Narrative: Sitting up in chair, NAD Head wound is clean and dry with dressing MANDI drain to suction with very minimal serosanguineous drainage - Urinary Catheter Management Indwelling Urethral Catheter Cath placed during this visit: yes, but has since been removed by the nurse Reason for continuing: Hourly intake/output Insertion date: 07/26/18 Insertion time: 12:00 Removal date: 07/26/18 Removal time: 13:20 Straight Cath placed during this visit: no Assessment and Plan - Plan s/p right frontal izzy hole evac of SDH f/u CT Brain reviewed only slight improvement of SDH, per Dr. Levy leave MANDI drain today and to be removed tomorrow cont MANDI draining to suction continue physical therapy, mobilize
--- NOTE | 2018-07-30 01:16 | P.PNONC ---
Subjective Interval history: Resting comfortably in bed. No distress. Looking forward to eating dinner. Reports anxiety this morning related to her hospital stay. Late note entry. Patient seen at approximately 7 pm on 07/29/2018 Objective Vital Signs/Intake & Output: Vital Signs 07/29/18 02:00 07/29/18 02:01 07/29/18 03:00 Temperature Pulse Rate 61 63 Respiratory Rate 15 16 Blood Pressure 168/70 H 134/64 170/70 H Pulse Oximetry 07/29/18 04:00 07/29/18 08:00 07/29/18 12:00 Temperature 97.9 F 99.4 F Pulse Rate 65 66 73 Respiratory Rate 17 10 L 21 Blood Pressure 176/74 H 132/60 152/70 H Pulse Oximetry 96 97 07/29/18 16:00 07/29/18 16:01 07/29/18 19:00 Temperature 99.0 F Pulse Rate 79 80 73 Respiratory Rate 38 H 43 H 27 H Blood Pressure 161/96 H 161/96 H 171/70 H Pulse Oximetry 96 93 L 96 07/29/18 20:00 07/29/18 21:01 07/29/18 22:00 Temperature Pulse Rate 75 65 74 Respiratory Rate 8 L 11 L 20 Blood Pressure 130/60 126/58 L 140/62 Pulse Oximetry 96 93 L 96 07/29/18 23:00 07/30/18 00:00 Temperature Pulse Rate 72 64 Respiratory Rate 18 16 Blood Pressure 134/63 151/67 H Pulse Oximetry 95 95 Intake & Output 07/29/18 07/29/18 07/30/18 06:59 18:59 06:59 Intake Total 50 / 50 Output Total 205 / 205 Balance 50 / 50 -205 / -205 Weight 76 kg Intake: Oral 50 / 50 Output: Urine 200 / 200 Wound Drainage 5 / 5 # 1 Right Head 5 / 5 Other: # Voids 6 4 Date of Last Bowel Movement 07/27/18 07/27/18 07/27/18 Result Diagrams: 08/01/18 06:37 08/01/18 06:37 Laboratory Results: Laboratory Results - last 24 hr 07/29/18 07/29/18 05:29 05:29 WBC 5.2 RBC 2.44 L Hgb 8.3 L Hct 23.5 L MCV 96.5 MCH 33.9 MCHC 35.1 RDW 14.1 Plt Count 68 L D MPV 8.9 Prelim Diff (Auto) Slide review pending Neut % (Auto) 52.5 Lymph % (Auto) 29.8 [place] % (Auto) 12.4 H Eos % (Auto) 4.7 H Baso % (Auto) 0.6 Neut # (Auto) 2.8 Lymph # (Auto) 1.6 [place] # (Auto) 0.6 Eos # (Auto) 0.2 Baso # (Auto) 0.0 WBC Differential . Diff Scan Auto diff confirmed Differential Comment . Platelet Estimate Low L Platelet Morphology Normal Sodium 136 Potassium 4.0 Chloride 103 Carbon Dioxide 29.5 Anion Gap 4 L BUN 9 Creatinine 0.99 Estimated GFR 54 L Random Glucose 91 Calcium 8.4 L Imaging Studies: Impressions Liver Ultrasound 07/29/18 00:00 CONCLUSION: 1. Diffusely abnormal appearance the liver likely from cirrhosis. The patient also has some hypoechoic areas which potentially represent masses. Further evaluation with contrast-enhanced CT would be recommended. 2. Gallstones 3. Echogenic kidney typically seen with medical renal disease. No hydronephrosis is seen. Medications: Active Medications Generic Name Dose Route Start Last Admin Trade Name Freq PRN Reason Stop Dose Admin Acetaminophen 650 mg 07/24/18 15:11 07/25/18 13:02 Tylenol PO 650 mg Q6H PRN Administration FEVER >101F Hydrocodone Bitart/Acetaminophen 1 tab 07/26/18 13:55 07/29/18 21:21 [place] 10/325 PO 1 tab Q4H PRN Administration Pain Scale 1 To 5 Allopurinol 300 mg 07/25/18 17:30 07/29/18 09:06 Zyloprim PO 300 mg DAILY LILO Administration Chlorhexidine Gluconate 3 pack 07/25/18 04:00 07/29/18 06:43 Chlorhexidine 2% Cloth TOPICAL 07/30/18 03:59 3 pack DAILY@0400 LILO Administration Famotidine 10 mg 07/26/18 21:00 07/29/18 20:07 Pepcid PO 10 mg BID LILO Administration Furosemide 40 mg 07/27/18 09:00 07/29/18 09:07 Lasix PO Not Given EVERY OTHER DAY LILO Levothyroxine Sodium 25 mcg 07/26/18 06:00 07/29/18 06:00 Synthroid PO 25 mcg DAILY@0600 LILO Administration Metoclopramide HCl 10 mg 07/27/18 12:26 07/28/18 10:04 Reglan Inj IV.PUSH 10 mg Q8H PRN Administration NAUSEA/VOMITING Ondansetron HCl 4 mg 07/24/18 15:11 07/28/18 06:39 Zofran Inj IV.PUSH 4 mg Q6H PRN Administration NAUSEA OR VOMITING Oxycodone/Acetaminophen 1 tab 07/25/18 17:16 07/28/18 20:10 Percocet 5/325 Mg PO 1 tab Q4H PRN Administration PAIN 6-10 Pantoprazole Sodium 40 mg 07/27/18 09:00 07/29/18 09:05 Protonix Inj IV.PUSH 40 mg DAILY LILO Administration Propranolol HCl 20 mg 07/25/18 21:00 07/29/18 20:07 Inderal PO 20 mg BID LILO Administration Rifaximin 550 mg 07/25/18 21:00 07/29/18 20:07 Xifaxan PO 550 mg BID LILO Administration Senna/Docusate Sodium 1 tab 07/24/18 21:00 07/29/18 20:07 Gypsy-Colace PO 1 tab BID LILO Administration Sodium Chloride 2 ml 07/24/18 21:00 07/29/18 09:09 Ns Flush IV.FLUSH 2 ml BID LILO Administration Spironolactone 50 mg 07/27/18 09:00 07/29/18 09:06 Aldactone PO 50 mg EVERY OTHER DAY LILO Administration Tramadol HCl 50 mg 07/25/18 18:34 07/28/18 18:07 Ultram PO 50 mg Q12H PRN Administration PAIN SCALE 1 TO 10 Objective Remarks: GENERAL: Well-nourished, well-developed patient. SKIN: Warm and dry. HEAD: Right drain EYES: No scleral icterus. No injection or drainage. RESPIRATORY: No accessory muscle use. EXTREMITIES: No cyanosis, or edema. MUSCULOSKELETAL: Adequate muscle tone. NEUROLOGICAL: No obvious focal deficit. Awake, alert, and oriented x3. PSYCHIATRIC: Appropriate mood and affect; insight and judgment normal. Assessment/Plan - Plan 1. TCP: ultrasoun reveals known liver cirrhosis. Haptoglobin WNL, Co[place] fibrinogen WNL. Will follow up splenic ultrasound.
[2018-07-30 05:32] LABS: Baso % (Auto) 0.5 % (0.0-2.0); Eos # (Auto) 0.2 th/mm3 (0.0-0.4); Eos % (Auto) 4.1 % (0.0-4.0); Hemoglobin 7.7 gm/dL (11.6-15.3); Lymph # (Auto) 1.6 th/mm3 (1.0-4.8); Lymph % (Auto) 30.5 % (9.0-44.0); Mean Corpuscular HGB Conc 33.5 % (32.0-36.0); Mean Corpuscular Hemoglobin 32.8 pg (27.0-34.0); Mean Corpuscular Volume 98.1 fL (80.0-100.0); Mono # (Auto) 0.6 th/mm3 (0.0-0.9); Mono % (Auto) 12.5 % (0.0-8.0); Neut # (Auto) 2.7 th/mm3 (1.8-7.7); Neut % (Auto) 52.4 % (16.0-70.0); Platelet Count 82 th/mm3 (150-450); Red Blood Count 2.35 mil/mm3 (4.00-5.30); Red Cell Distribution Width 14.1 % (11.6-17.2); White Blood Count 5.2 th/mm3 (4.0-11.0)
[2018-07-30 06:23] LABS: Ovalocytes 1+; Platelet Morphology Normal (Normal)
--- NOTE | 2018-07-30 10:26 | P.PNIM ---
Subjective Interval history: Patient reports she is feeling ok today. Still has a headache but slightly improved. No change in vision. No other issues. Physical Exam Vital signs: Vital Signs 07/29/18 12:00 07/29/18 16:00 07/29/18 16:01 Temperature 99.4 F 99.0 F Pulse Rate 73 79 80 Respiratory Rate 21 38 H 43 H Blood Pressure 152/70 H 161/96 H 161/96 H Pulse Oximetry 97 96 93 L 07/29/18 19:00 07/29/18 20:00 07/29/18 21:01 Temperature Pulse Rate 73 75 65 Respiratory Rate 27 H 8 L 11 L Blood Pressure 171/70 H 130/60 126/58 L Pulse Oximetry 96 96 93 L 07/29/18 22:00 07/29/18 23:00 07/30/18 00:00 Temperature Pulse Rate 74 72 64 Respiratory Rate 20 18 16 Blood Pressure 140/62 134/63 151/67 H Pulse Oximetry 96 95 95 07/30/18 01:00 07/30/18 02:00 07/30/18 03:00 Temperature Pulse Rate 72 63 59 L Respiratory Rate 33 H 15 15 Blood Pressure 159/108 H 149/87 H 149/87 H Pulse Oximetry 95 94 L 92 L 07/30/18 04:00 07/30/18 07:28 07/30/18 08:00 Temperature 98.0 F 98 F Pulse Rate 63 79 Respiratory Rate 14 14 Blood Pressure 110/56 L 154/67 H Pulse Oximetry 94 L 97 96 Intake & Output 07/29/18 07/30/18 07/30/18 18:59 06:59 18:59 Intake Total 200 / 200 Output Total 205 / 205 600 / 600 Balance -205 / -205 -400 / -400 Weight 75.5 kg Intake: Oral 200 / 200 Output: Urine 200 / 200 600 / 600 Wound Drainage 5 / 5 # 1 Right Head 5 / 5 Other: # Voids 4 Date of Last Bowel Movement 07/27/18 07/27/18 07/27/18 Narrative: GENERAL: This is a well-nourished, well-developed patient, in no apparent distress. HEENT: Patient has a drain on the right side of the head. Dressing appear intact. CARDIOVASCULAR: Normal rate and regular rhythm without murmurs, gallops, or rubs. RESPIRATORY: Good respiratory efforts. Breath sounds equal and clear to auscultation bilaterally. GASTROINTESTINAL: Abdomen soft, non-tender, non-distended. Normal active bowel sounds MUSCULOSKELETAL: Extremities without cyanosis, or edema. NEURO: Alert & Oriented x4 to person, place, time, situation. Moves all ext x4 PSYCH: Appropriate mood and affect. - Urinary Catheter Management Indwelling Urethral Catheter Cath placed during this visit: yes, but has since been removed by the nurse Reason for continuing: Hourly intake/output Insertion date: 07/26/18 Insertion time: 12:00 Removal date: 07/26/18 Removal time: 13:20 Straight Cath placed during this visit: no Results - Labs CBC & Chem 7: 07/30/18 04:31 07/29/18 05:29 Laboratory Results - last 24 hr 07/30/18 04:31 WBC 5.2 RBC 2.35 L Hgb 7.7 L Hct 23.0 L MCV 98.1 MCH 32.8 MCHC 33.5 RDW 14.1 Plt Count 82 L MPV 10.0 Prelim Diff (Auto) Slide review pending Neut % (Auto) 52.4 Lymph % (Auto) 30.5 [place] % (Auto) 12.5 H Eos % (Auto) 4.1 H Baso % (Auto) 0.5 Neut # (Auto) 2.7 Lymph # (Auto) 1.6 [place] # (Auto) 0.6 Eos # (Auto) 0.2 Baso # (Auto) 0.0 WBC Differential . Diff Scan Auto diff confirmed Differential Comment . Platelet Estimate Low L Platelet Morphology Normal Ovalocytes 1+ H - Imaging Impressions Liver Ultrasound 07/29/18 00:00 CONCLUSION: 1. Diffusely abnormal appearance the liver likely from cirrhosis. The patient also has some hypoechoic areas which potentially represent masses. Further evaluation with contrast-enhanced CT would be recommended. 2. Gallstones 3. Echogenic kidney typically seen with medical renal disease. No hydronephrosis is seen. Assessment and Plan - Plan 78 Y/O female with: Chronic right-sided subdural hematoma, post traumatic s/p izzy hole 07/26 -developed a symptomatic chronic right subdural hematoma with a small midline shift approximately 3 weeks following a fall. -Neurosurgery following. Continue perioperative management, subdural drain management as per neurosurgery. Chronic thrombocytopenia -Patient received platelet transfusion, 5 units during this hospitalization which does not seem to be making a difference in her platelets, fortunately that she does not seem to be bleeding acutely.Appreciate hematology input. Follow up spleen ultrasound. -Platelets stable and improved. History of atrial fibrillation, now NSR -Avoid anticoagulation due to subdural hematoma, as well as thrombocytopenia. Chronic cirrhosis -INR within normal limits. No signs of hepatic encephalopathy. Limits. LFTs within normal limits. Constipation. Mild. Laxative as needed. Monitor. DVT prophylaxis. SCDs. Avoid anticoagulation in the setting anemia and thrombocytopenia. Discharge Planning: Once Neurosurgical issues stable, can return home.
[2018-07-30] MEDS: Senna/Docusate Sodium 8.6/50 MG Tablet PO SCH ×2 (10:27→22:02)
[2018-07-30] MEDS: Famotidine 20 MG Tablet PO SCH ×2 (10:27→21:55)
[2018-07-30] MEDS: Allopurinol 300 MG Tablet PO SCH (10:27)
[2018-07-30] MEDS: rifAXIMin 550 MG Tablet PO SCH ×2 (10:27→21:56)
--- NOTE | 2018-07-30 12:26 | P.PNNS ---
Subjective Interval history: Doing well, drain with minimal output removed this morning Physical Exam Vital signs: Vital Signs 07/29/18 16:00 07/29/18 16:01 07/29/18 19:00 Temperature 99.0 F Pulse Rate 79 80 73 Respiratory Rate 38 H 43 H 27 H Blood Pressure 161/96 H 161/96 H 171/70 H Pulse Oximetry 96 93 L 96 07/29/18 20:00 07/29/18 21:01 07/29/18 22:00 Temperature Pulse Rate 75 65 74 Respiratory Rate 8 L 11 L 20 Blood Pressure 130/60 126/58 L 140/62 Pulse Oximetry 96 93 L 96 07/29/18 23:00 07/30/18 00:00 07/30/18 01:00 Temperature Pulse Rate 72 64 72 Respiratory Rate 18 16 33 H Blood Pressure 134/63 151/67 H 159/108 H Pulse Oximetry 95 95 95 07/30/18 02:00 07/30/18 03:00 07/30/18 04:00 Temperature 98.0 F Pulse Rate 63 59 L 63 Respiratory Rate 15 15 14 Blood Pressure 149/87 H 149/87 H 110/56 L Pulse Oximetry 94 L 92 L 94 L 07/30/18 07:28 07/30/18 08:00 07/30/18 12:21 Temperature 98 F Pulse Rate 79 Respiratory Rate 14 18 Blood Pressure 154/67 H Pulse Oximetry 97 96 Intake & Output 07/29/18 07/30/18 07/30/18 18:59 06:59 18:59 Intake Total 200 / 200 Output Total 205 / 205 600 / 600 Balance -205 / -205 -400 / -400 Weight 75.5 kg Intake: Oral 200 / 200 Output: Urine 200 / 200 600 / 600 Wound Drainage 5 / 5 # 1 Right Head 5 / 5 Other: # Voids 4 Date of Last Bowel Movement 07/27/18 07/27/18 07/27/18 Narrative: A&O x 3 CN II - XII intact Motor 5/5 UE / LE Incision c/d/i Drain removed without incident - Urinary Catheter Management Indwelling Urethral Catheter Cath placed during this visit: yes, but has since been removed by the nurse Reason for continuing: Hourly intake/output Insertion date: 07/26/18 Insertion time: 12:00 Removal date: 07/26/18 Removal time: 13:20 Straight Cath placed during this visit: no Assessment and Plan - Plan s/p right frontal izzy hole evac of SDH f/u CT Brain reviewed only slight improvement of SDH, per Dr. Levy leave MANDI drain today and to be removed tomorrow cont MANDI draining to suction continue physical therapy, mobilize 07/30/18 drain dc'd today-- ok to transfer to floor-- anticipate d/c to home on Wednesday
[2018-07-30] MEDS: Pantoprazole Inj 40 MG Vial IV.PUSH SCH (13:03)
[2018-07-31] MEDS: Senna/Docusate Sodium 8.6/50 MG Tablet PO SCH ×2 (09:53→21:08)
[2018-07-31] MEDS: Famotidine 20 MG Tablet PO SCH ×2 (09:54→21:08)
[2018-07-31] MEDS: rifAXIMin 550 MG Tablet PO SCH ×2 (09:54→21:08)
[2018-07-31] MEDS: Spironolactone 50 MG Tablet PO SCH (09:54)
[2018-07-31] MEDS: Allopurinol 300 MG Tablet PO SCH (09:54)
[2018-07-31] MEDS: Pantoprazole Inj 40 MG Vial IV.PUSH SCH (09:54)
[2018-07-31] MEDS: Furosemide 40 MG Tablet PO SCH (09:54)
[2018-07-31 10:37] LABS: Hematocrit 28.3 % (35.0-46.0); Hemoglobin 9.7 gm/dL (11.6-15.3); Mean Corpuscular HGB Conc 34.2 % (32.0-36.0); Mean Corpuscular Hemoglobin 33.6 pg (27.0-34.0); Mean Corpuscular Volume 98.2 fL (80.0-100.0); Platelet Count 121 th/mm3 (150-450); Red Blood Count 2.88 mil/mm3 (4.00-5.30); Red Cell Distribution Width 14.2 % (11.6-17.2); White Blood Count 11.8 th/mm3 (4.0-11.0)
[2018-07-31 11:10] LABS: Calcium 8.6 mg/dL (8.5-10.1); Carbon Dioxide 29.5 meq/L (21.0-32.0)
--- NOTE | 2018-07-31 17:12 | P.PNIM ---
Subjective Interval history: Patient reports she is feeling okay today except for constipation this morning. She is feeling better after she had a couple of small bowel movements. Physical Exam Vital signs: Vital Signs 07/30/18 20:00 07/31/18 00:00 07/31/18 04:00 Temperature 98.1 F 98.7 F 99.1 F Pulse Rate 68 82 75 Respiratory Rate 20 20 18 Blood Pressure 180/76 H 162/67 H 156/70 H Pulse Oximetry 97 98 97 07/31/18 07:56 07/31/18 08:00 07/31/18 12:00 Temperature 98.5 F 98.2 F Pulse Rate 75 77 74 Respiratory Rate 14 20 Blood Pressure 122/66 103/64 Pulse Oximetry 96 97 07/31/18 16:00 Temperature 98.7 F Pulse Rate 76 Respiratory Rate 20 Blood Pressure 110/63 Pulse Oximetry 98 Intake & Output 07/30/18 07/31/18 07/31/18 18:59 06:59 18:59 Intake Total 240 / 240 Balance 240 / 240 Weight 75 kg Intake: Oral 240 / 240 Other: # Voids 4 2 Date of Last Bowel Movement 07/27/18 Narrative: GENERAL: This is a well-nourished, well-developed patient, in no apparent distress. HEENT: Old drain site dressing appear intact. CARDIOVASCULAR: Normal rate and regular rhythm without murmurs, gallops, or rubs. RESPIRATORY: Good respiratory efforts. Breath sounds equal and clear to auscultation bilaterally. GASTROINTESTINAL: Abdomen soft, non-tender, non-distended. Normal active bowel sounds MUSCULOSKELETAL: Extremities without cyanosis, or edema. NEURO: Alert & Oriented x4 to person, place, time, situation. Moves all ext x4 PSYCH: Appropriate mood and affect. - Urinary Catheter Management Indwelling Urethral Catheter Cath placed during this visit: yes, but has since been removed by the nurse Reason for continuing: Hourly intake/output Insertion date: 07/26/18 Insertion time: 12:00 Removal date: 07/26/18 Removal time: 13:20 Straight Cath placed during this visit: no Results - Labs CBC & Chem 7: 07/31/18 08:56 07/31/18 08:56 Laboratory Results - last 24 hr 07/31/18 07/31/18 08:56 08:56 WBC 11.8 H RBC 2.88 L Hgb 9.7 L D Hct 28.3 L MCV 98.2 MCH 33.6 MCHC 34.2 RDW 14.2 Plt Count 121 L D MPV 10.0 Sodium 131 L Potassium 4.0 Chloride 97 L Carbon Dioxide 29.5 Anion Gap 5 BUN 11 Creatinine 1.18 H Estimated GFR 44 L Random Glucose 134 H Calcium 8.6 Assessment and Plan - Plan 78 Y/O female with: Chronic right-sided subdural hematoma, post traumatic s/p izzy hole 07/26 -developed a symptomatic chronic right subdural hematoma with a small midline shift approximately 3 weeks following a fall. -Neurosurgery following. Continue perioperative management. Drain removed yesterday. - Continue to monitor. Chronic thrombocytopenia -Patient received platelet transfusion, 5 units during this hospitalization which does not seem to be making a difference in her platelets, fortunately that she does not seem to be bleeding acutely.Appreciate hematology input. Follow up spleen ultrasound. -Platelets stable and improved. History of atrial fibrillation, now NSR -Avoid anticoagulation due to subdural hematoma, as well as thrombocytopenia. Chronic cirrhosis -INR within normal limits. No signs of hepatic encephalopathy. Limits. LFTs within normal limits. Constipation. Mild. Laxative as needed. Improving. Monitor. DVT prophylaxis. SCDs. Avoid anticoagulation in the setting anemia and thrombocytopenia. Discharge Planning: Cleared for discharge tomorrow if remains stable per neurosurgery.
[2018-08-01 07:58] LABS: Hemoglobin 8.8 gm/dL (11.6-15.3); Mean Corpuscular HGB Conc 35.2 % (32.0-36.0); Mean Corpuscular Hemoglobin 34.6 pg (27.0-34.0); Mean Corpuscular Volume 98.3 fL (80.0-100.0); Mean Platelet Volume 9.5 fL (7.0-11.0); Platelet Count 95 th/mm3 (150-450); Red Blood Count 2.54 mil/mm3 (4.00-5.30); Red Cell Distribution Width 14.1 % (11.6-17.2); White Blood Count 8.5 th/mm3 (4.0-11.0)
[2018-08-01 08:21] LABS: Carbon Dioxide 29.2 meq/L (21.0-32.0); Potassium 3.7 meq/L (3.5-5.1)
[2018-08-01] MEDS: rifAXIMin 550 MG Tablet PO SCH (08:21)
[2018-08-01] MEDS: Pantoprazole Inj 40 MG Vial IV.PUSH SCH (08:21)
[2018-08-01] MEDS: Famotidine 20 MG Tablet PO SCH (08:21)
[2018-08-01] MEDS: Senna/Docusate Sodium 8.6/50 MG Tablet PO SCH (08:22)
[2018-08-01] MEDS: Allopurinol 300 MG Tablet PO SCH (08:22)
--- NOTE | 2018-08-01 12:03 | CT ---
EXAM DATE: 08/01/2018 11:57 AM EST AGE/SEX: 78 years / Female INDICATIONS: F/U intracerebral hemorrhage. CLINICAL DATA: This is the patient's subsequent encounter. Patient reports that signs and symptoms h ave been present for 1 month and indicates a pain score of 0/10. MEDICAL/SURGICAL HISTORY: . A-fib None. RADIATION DOSE: 56.35 CTDI (mGy) COMPARISON: [facility] – [place], CT HEAD W/O CONTRAST, 07/28/2018. . TECHNIQUE: CT of the head without contrast. Using automated exposure control and adjustment of the mA and/or kV according to patient size, radiation dose was kept as low as reasonably achievable to ob tain optimal diagnostic quality images. DICOM format image data is available electronically for revi ew and comparison. FINDINGS: Today's examination is compared to the prior examination of 07/28/2018. The previously noted right-si ded subdural drain has been removed. There continues to be a small amount of intracranial air consist ent with patient's recent surgery. There has been improvement with the subdural fluid collection seen on the prior examination. There is a small amount of residual right-sided subdural hygroma with appr oximately 5 mm of separation along the right frontal lobe area. This is improved compared to the prio r examination. The ventricles are normal in size and midline in position. No new areas of acute intra cranial hemorrhage is demonstrated. The posterior fossa is unremarkable and stable. CONCLUSION: 1. Status post removal of the previously noted right-sided subdural drainage catheter. 2. Slowly improving postoperative changes with a small amount of residual right-sided subdural hygro ma present with 5 mm of separation. . Electronically signed by: Tom Tello MD 08/01/2018 12:01 PM EST
--- NOTE | 2018-08-01 16:48 | P.DS ---
Date of admission: 07/24/18 15:05 Primary care physician: Tima Mccracken MD Brief History from admission: HPI as documented by the admitting physician This 78-year-old woman presented to the [facility] emergency department with a worsening right-sided headache this morning. CAT scan of the head revealed a moderate size right subdural hematoma, chronic, with midline shift. She is verbal and awake but mildly confused. Her history is significant for a fall on July 01 during which she fractured her left wrist, sprained her right wrist, and developed a small subdural. She developed cirrhosis of the liver from chronic nonsteroidal anti-inflammatory use and has not had major problems with bleeding. However she does run a chronically low platelet level which is 90,000 today. Her record indicates a past history of atrial fibrillation but she was in sinus mechanism on the last admission and remains so. Patient update on day of discharge: Patient reports she is feeling much better. Headache mostly resolved. No change in vision or lightheadedness. DS: Summary Hospital Course: 78 Y/O female admitted and treated for the following: Chronic right-sided subdural hematoma, post traumatic s/p izzy hole 07/26 -developed a symptomatic chronic right subdural hematoma with a small midline shift approximately 3 weeks following a fall. -Neurosurgery followed the patient. She had a drain in place which was eventually removed. Repeat CAT scan showed improvement. Patient's symptoms significantly improved. She is discharged in good condition to follow-up outpatient with neurosurgery. Chronic thrombocytopenia -Patient received platelet transfusion, 5 units during this hospitalization which does not seem to be making a difference in her platelets, fortunately that she does not seem to be bleeding acutely. Hematology followed the patient -Platelets stable and improved. She is advised to follow-up outpatient with hematology. History of atrial fibrillation, now NSR -Avoid anticoagulation due to subdural hematoma, as well as thrombocytopenia. Chronic cirrhosis -INR within normal limits. No signs of hepatic encephalopathy. Limits. LFTs within normal limits. Constipation. Mild. Laxative as needed. Resolved. - Time Spent with Patient Total time spent providing and/or coordinating discharge services: Less than 30 minutes - Quality: VTE Deep Vein Thrombosis/Pulmonary Embolism Present on Admission: No Exam Vital signs: Vital Signs 07/31/18 20:00 08/01/18 00:00 08/01/18 04:00 Temperature 98.2 F 97.8 F 98.4 F Pulse Rate 78 75 79 Respiratory Rate 18 Blood Pressure 157/66 H 152/72 H 128/59 L Pulse Oximetry 96 94 L 98 08/01/18 06:00 08/01/18 07:54 08/01/18 08:00 Temperature 98.3 F Pulse Rate 75 78 76 Respiratory Rate 20 Blood Pressure 145/65 H Pulse Oximetry 95 08/01/18 11:48 08/01/18 16:00 Temperature 98.6 F 98.2 F Pulse Rate 71 76 Respiratory Rate 20 15 Blood Pressure 106/56 L 132/14 L Pulse Oximetry 97 100 Intake & Output 07/31/18 08/01/18 08/01/18 18:59 06:59 18:59 Weight 78.2 kg Other: # Voids 8 4 Date of Last Bowel Movement 07/30/18 Narrative: GENERAL: This is a well-nourished, well-developed patient, in no apparent distress. HEENT: Old drain site dressing appear intact. CARDIOVASCULAR: Normal rate and regular rhythm without murmurs, gallops, or rubs. RESPIRATORY: Good respiratory efforts. Breath sounds equal and clear to auscultation bilaterally. GASTROINTESTINAL: Abdomen soft, non-tender, non-distended. Normal active bowel sounds MUSCULOSKELETAL: Extremities without cyanosis, or edema. NEURO: Alert & Oriented x4 to person, place, time, situation. Moves all ext x4 PSYCH: Appropriate mood and affect. Results Procedures completed during hospitalization: See summary Labs on day of discharge: Labs from last 24 hours 08/01/18 08/01/18 07/28/18 06:37 06:37 21:21 WBC 8.5 RBC 2.54 L Hgb 8.8 L Hct 25.0 L MCV 98.3 MCH 34.6 H MCHC 35.2 RDW 14.1 Plt Count 95 L MPV 9.5 Sodium 132 L Potassium 3.7 Chloride 96 L Carbon Dioxide 29.2 Anion Gap 7 BUN 11 Creatinine 1.18 H Estimated GFR 44 L Random Glucose 121 H Calcium 8.0 L Hep B Core Total Ab Nonreactive - Impressions ITS Impressions Liver Ultrasound 07/29/18 00:00 CONCLUSION: 1. Diffusely abnormal appearance the liver likely from cirrhosis. The patient also has some hypoechoic areas which potentially represent masses. Further evaluation with contrast-enhanced CT would be recommended. 2. Gallstones 3. Echogenic kidney typically seen with medical renal disease. No hydronephrosis is seen. Head CT 08/01/18 00:00 CONCLUSION: 1. Status post removal of the previously noted right-sided subdural drainage catheter. 2. Slowly improving postoperative changes with a small amount of residual right -sided subdural hygroma present with 5 mm of separation. . Discharge Plan - Discharge Disposition Patient Disposition: Discharge Home - Discharge Condition Condition: Good - Discharge Order Discharge Orders: Discharge Order (Routine); Ordered 08/01/18 Ordered By: Butch Guerrero - Physicians Team Primary Care Provider: Tima Mccracken Attending Provider: Butch Guerrero Other Providers: Sohail Levy MD ; Michela Saravia
--- NOTE | 2018-08-01 19:58 | P.PNONC ---
Subjective Interval history: Resting comfortably in bed. Looking forward to going home. Objective Vital Signs/Intake & Output: Vital Signs 07/31/18 20:00 08/01/18 00:00 08/01/18 04:00 Temperature 98.2 F 97.8 F 98.4 F Pulse Rate 78 75 79 Respiratory Rate 18 18 18 Blood Pressure 157/66 H 152/72 H 128/59 L Pulse Oximetry 96 94 L 98 08/01/18 06:00 08/01/18 07:54 08/01/18 08:00 Temperature 98.3 F Pulse Rate 75 78 76 Respiratory Rate 20 Blood Pressure 145/65 H Pulse Oximetry 95 08/01/18 11:48 08/01/18 16:00 Temperature 98.6 F 98.2 F Pulse Rate 71 76 Respiratory Rate 20 15 Blood Pressure 106/56 L 132/14 L Pulse Oximetry 97 100 Intake & Output 08/01/18 08/01/18 08/02/18 06:59 18:59 06:59 Weight 78.2 kg Other: # Voids 4 Date of Last Bowel Movement 07/30/18 07/31/18 Result Diagrams: 08/01/18 06:37 08/01/18 06:37 Laboratory Results: Laboratory Results - last 24 hr 08/01/18 08/01/18 06:37 06:37 WBC 8.5 RBC 2.54 L Hgb 8.8 L Hct 25.0 L MCV 98.3 MCH 34.6 H MCHC 35.2 RDW 14.1 Plt Count 95 L MPV 9.5 Sodium 132 L Potassium 3.7 Chloride 96 L Carbon Dioxide 29.2 Anion Gap 7 BUN 11 Creatinine 1.18 H Estimated GFR 44 L Random Glucose 121 H Calcium 8.0 L Imaging Studies: Impressions Head CT 08/01/18 00:00 CONCLUSION: 1. Status post removal of the previously noted right-sided subdural drainage catheter. 2. Slowly improving postoperative changes with a small amount of residual right -sided subdural hygroma present with 5 mm of separation. . Medications: Active Medications Generic Name Dose Route Start Last Admin Trade Name Freq PRN Reason Stop Dose Admin Acetaminophen 650 mg 07/24/18 15:11 07/25/18 13:02 Tylenol PO 650 mg Q6H PRN Administration FEVER >101F Hydrocodone Bitart/Acetaminophen 1 tab 07/26/18 13:55 07/31/18 17:40 [place] 10/325 PO 1 tab Q4H PRN Administration Pain Scale 1 To 5 Al Hydroxide/Mg Hydroxide 30 ml 07/24/18 15:11 07/31/18 17:40 Milk Of Magnesia Liq PO 30 ml Q12H PRN Administration Mild Constipation Allopurinol 300 mg 07/25/18 17:30 08/01/18 08:22 Zyloprim PO 300 mg DAILY LILO Administration Bisacodyl 10 mg 07/24/18 15:11 07/30/18 20:12 Dulcolax Supp RECTAL 10 mg DAILY PRN Administration SEVERE [employer]IP[employer] Famotidine 10 mg 07/26/18 21:00 08/01/18 08:21 Pepcid PO 10 mg BID LILO Administration Furosemide 40 mg 07/27/18 09:00 07/31/18 09:54 Lasix PO 40 mg EVERY OTHER DAY LILO Administration Lactulose 30 ml 07/24/18 15:11 07/31/18 21:08 Lactulose Liq PO 30 ml DAILY PRN Administration SEVERE [employer]SITIPATION Levothyroxine Sodium 25 mcg 07/26/18 06:00 08/01/18 05:56 Synthroid PO 25 mcg DAILY@0600 [facility] Administration Metoclopramide HCl 10 mg 07/27/18 12:26 07/30/18 18:32 Reglan Inj IV.PUSH 10 mg Q8H PRN Administration NAUSEA/VOMITING Ondansetron HCl 4 mg 07/24/18 15:11 07/30/18 15:06 Zofran Inj IV.PUSH 4 mg Q6H PRN Administration NAUSEA OR VOMITING Oxycodone/Acetaminophen 1 tab 07/25/18 17:16 07/30/18 17:08 Percocet 5/325 Mg PO 1 tab Q4H PRN Administration PAIN 6-10 Pantoprazole Sodium 40 mg 07/27/18 09:00 08/01/18 08:21 Protonix Inj IV.PUSH 40 mg DAILY LILO Administration Propranolol HCl 20 mg 07/25/18 21:00 08/01/18 08:22 Inderal PO 20 mg BID LILO Administration Rifaximin 550 mg 07/25/18 21:00 08/01/18 08:21 Xifaxan PO 550 mg BID LILO Administration Senna/Docusate Sodium 1 tab 07/24/18 21:00 08/01/18 08:22 Gypsy-Colace PO 1 tab BID LILO Administration Sodium Chloride 2 ml 07/24/18 21:00 08/01/18 08:36 Ns Flush IV.FLUSH 2 ml BID LILO Administration Spironolactone 50 mg 07/27/18 09:00 07/31/18 09:54 Aldactone PO 50 mg EVERY OTHER DAY LILO Administration Tramadol HCl 50 mg 07/25/18 18:34 07/28/18 18:07 Ultram PO 50 mg Q12H PRN Administration PAIN SCALE 1 TO 10 Objective Remarks: GENERAL: Well-nourished, well-developed patient. SKIN: Warm and dry. HEAD: right head with surgical incision, healing EYES: No scleral icterus. No injection or drainage. RESPIRATORY: No accessory muscle use. GASTROINTESTINAL: Abdomen soft, non-tender, nondistended. EXTREMITIES: No cyanosis, or edema. MUSCULOSKELETAL: Adequate muscle tone. NEUROLOGICAL: No obvious focal deficit. Awake, alert, and oriented x3. Assessment/Plan - Plan 1. TCP: in a patient with liver cirrhosis. She will continue to follow closely with audit partner in [place] upon hospital discharge.
== END 2018-08-01 20:57 | disposition home or self-care (01) ==
LOC: NEPC 14:23 → NEDA 15:05 → N03 17:27 → N05 07-30 16:15
PROVIDERS: ADMIT Family Medicine; ATTEND Family Medicine
PROC: CRASUBD (ICD-10-PCS; 2018-07-26 11:29)